=== PATIENT | male | born 1930 | race Hispanic/Latino ===

== ENCOUNTER 2017-08-28 11:52 | Day surgery (SDC) | payer OTHER ==
[2017-08-28] MEDS ORDERED: CYCLOPENTOLATE 1% OPTH 2 ML ONE (12:32)
[2017-08-28] MEDS ORDERED: BUPIVACAINE 0.25% PF 10 ML VIAL ONE (12:33)
[2017-08-28] MEDS ORDERED: PHENYLEPHRINE 10% OPTH 5ML ONE (12:33)
[2017-08-28] MEDS ORDERED: NA CHLORIDE 0.9% 500 ML ONE (12:33)
[2017-08-28] MEDS ORDERED: CYCLOPENTOLATE 1% OPTH 2 ML OPTH ONE ×2 (13:20→13:25)
[2017-08-28] MEDS ORDERED: PHENYLEPHRINE 10% OPTH 5ML OPTH ONE ×2 (13:20→13:25)
[2017-08-28] MEDS ORDERED: NS 0.9% VIAL 10 ML ONE (13:31)
[2017-08-28] MEDS: TETRACAINE HCL 0.5% 2ML OPTH ONE ×2 (13:56→14:07)
[2017-08-28] MEDS: EPINEPHRINE/PF 1 MG/ML AMP ONE ×2 (14:08→14:15)
[2017-08-28] MEDS: DUOVISC 1 KIT OPTH ONE ×2 (14:08→14:15)
[2017-08-28] MEDS: MOXIFLOXACIN HCL 10 DROPS/ML **OR USE OPTH ONE ×2 (14:08→14:15)
[2017-08-28] MEDS: BALANCED SALT IRRIG PLAIN 500 ML BTL IRR ONE ×2 (14:08→14:15)
[2017-08-28] MEDS ORDERED: PROPOFOL 200 MG/20 ML VIAL IV ONE (14:10)
[2017-08-28] MEDS ORDERED: LIDOCAINE 2% MPF 5 ML VIAL ONE (14:10)
--- NOTE | 2017-08-28 14:50 | P.BOP ---
Preoperative diagnosis: Nuclear sclerotic and cortical cataract OS Postoperative diagnosis: Same Primary procedure: Phacoemulsification with IOL OS Estimated blood loss: None Anesthesia: Local (Subtenon's infusion with anesthesia for cataract surgery) Complications: None Implants: ZCB00 +21.0 Transferred to: Other (Day surgery) Condition: Good
--- NOTE | 2017-08-28 23:56 | OP ---
Date of Procedure: 08/28/2017 Surgeon: Nia Gambino MD Anesthesiologist: 1. Sidney Basurto CRNA. 2. Kemal Post M.D. Preoperative Diagnoses: Nuclear sclerotic and cortical cataract, OS (left eye). Operation Performed: Phacoemulsification with intraocular lens implant, OS (left eye). Anesthesia: Per cataract surgery. Complications: None. Description Of Procedure: In day surgery, the patient was prepped with Betadine and draped. A conju nctival incision was made in the inferior nasal quadrant with Ashley scissors. A sub-Tenon block c onsisting of a 1:1 mixture of 2% Xylocaine and 0.25% bupivacaine was placed through the conjunctival incision with a blunt cannula. A Honan balloon was placed over the eye and the patient was transferr ed to the operating room. In the operating room the patient was prepped and draped in the usual sterile fashion for ophthalmic surgery. A lid speculum was placed in the OS. Two paracentesis sites were made superiorly and infer iorly in the limbal cornea. Viscoat was placed in the anterior chamber and a crescent blade was used to make a corneal groove and tunnel, and a keratome was used to enter the anterior chamber. Provisc was placed in the anterior chamber and a 360 degree capsulotomy was performed with a cystitome. The lens was hydrodissected with BSS and rotated freely. The lens was removed with a stop and chop tech nique. A 7.52 phaco CDE was used to remove the lens. Residual cortex was removed with the irrigatio n and aspiration. Provisc was placed in the capsular bag. A ZCB00 +21.0 lens was placed in the caps ular bag without complications. Irrigation and aspiration was used to remove residual viscoelastic. The paracentesis sites were hydrated with BSS. The wound and paracentesis sites were inspected and found to be watertight. Vigamox 0.07 cc was placed intracamerally at the end of the procedure. The eye was irrigated with balanced salt solution. The eye was patched with a soft cotton patch and Chacon metal shield. The patient was returned to day surgery in good condition. Discharge Instructions: Mr. Ornelas is discharged to home in good condition and is to follow up with Dr. Gambino in the morning. GRIFFINL/MODL Voice ID: [id number] Report ID: [id number]
== END 2017-08-28 15:23 | disposition home or self-care (01) ==
LOC: OR 11:52
PROVIDERS: ATTEND Ophthalmology Retina Specialist
PROC: 08RK3JZ Replacement of Left Lens with Synthetic Substitute, Percutaneous Approach (ICD-10-PCS; principal; 2017-08-28 12:55)
DX: H25.12 Age-related nuclear cataract, left eye (principal); H25.012 Cortical age-related cataract, left eye; H43.812 Vitreous degeneration, left eye; H04.123 Dry eye syndrome of bilateral lacrimal glands; E11.9 Type 2 diabetes mellitus without complications; I10 Essential (primary) hypertension; G47.33 Obstructive sleep apnea (adult) (pediatric); M19.90 Unspecified osteoarthritis, unspecified site
CPT/HCPCS: 66984; 82962; J0171

== ENCOUNTER 2018-06-15 16:23 | Emergency (ER) | payer OTHER ==
--- OUTSIDE RECORDS SUMMARY | 2018-06-15 16:25 | XMS REPORT ---
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 Problem Obese E66.9 Active Problem Generalized osteoarthrosis, M15.9 Active involving multiple sites Problem Benign prostate hyperplasia N40.0 Active Problem Unsteady gait R26.81 Active Problem Obstructive sleep apnea G47.33 Active Problem Type 2 diabetes mellitus with other E11.69 Active specified complication Problem GERD (gastroesophageal reflux K21.9 Active disease) Problem Hearing loss H91.90 Active Problem Benign essential HTN I10 Active Problem Colonic polyp K63.5 Active Problem COPD (chronic obstructive pulmonary J44.9 Active disease) Medications No Known Medications Results No Known Results Summary Purpose eClinicalWorks Submission
--- OUTSIDE RECORDS SUMMARY | 2018-06-15 16:25 | XMS REPORT ---
:1930 Author Organization [employer] Care Team Providers Name Role Phone Koehler, Na Provider Role Unavailable Allergies, Adverse Reactions, Alerts Substance Reaction Event Type N.K.D.A. 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 Assessment Obstructive sleep apnea G47.33 Active Assessment Generalized osteoarthrosis, M15.9 Active involving multiple sites Problem Obese E66.9 Active Problem Generalized osteoarthrosis, M15.9 Active involving multiple sites Problem Benign prostate hyperplasia N40.0 Active Problem Unsteady gait R26.81 Active Problem Obstructive sleep apnea G47.33 Active Assessment Essential hypertension I10 Active Assessment Type 2 diabetes mellitus with other E11.69 Active specified complication Assessment 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 Problem Type 2 diabetes mellitus with other E11.69 Active specified complication Problem GERD (gastroesophageal reflux K21.9 Active disease) Assessment Tinea unguium B35.1 Active Problem Hearing loss H91.90 Active Problem Benign essential HTN I10 Active Assessment Unsteady gait R26.81 Active Problem Colonic polyp K63.5 Active Problem COPD (chronic obstructive pulmonary J44.9 Active disease) Medications Medication Code Code Instructions Start End Status Dosage System Date Date Cozaar [facility] 58379934998 50 MG Orally Active 1 tablet Once a day Meclizine HCl ND 71141690722 12.5 MG Orally Active 2 tablets as Once a day needed Metformin HCl [facility] 16289035605 500 MG Active TAKE 1 TABLET BY MOUTH EVERY MORNING Symbicort [facility] 67206468362 160-4.5 MCG/ACT Active 2 puffs Inhalation Twice a day Ventolin HFA [facility] 16903029706 108 (90 Base) Active 2 puffs as MCG/ACT needed Inhalation every 6 hrs Cozaar [facility] 43829367581 50 MG Orally Inactive 1 tablet Once a day Aspirin Adult [facility] 60446514882 81 MG Orally Active 1 tablet Low Dose Once a day Cetirizine [facility] 56075885669 10 MG Orally Active 1 tablet HCl Once a day Cetirizine [facility] 28684663491 10 MG Active TOME ALEX HCl TABLETA POR VIA ORAL [place] [facility] NEEDED FOR ALLERGIES Lyrica ND 22728937057 100 MG Orally October 26, Active 1 capsule two times a day 2017 Zyrtec [facility] 83099406408 10 MG Orally Active 1 tablet Allergy Once a day Ultram [facility] 77068288214 50 MG Orally Active 1 tablet as every 6 hrs needed Losartan [facility] 99452194297 50 MG Active TOME ALEX Potassium TABLETA POR VIA ORAL [place] Losartan [facility] 93207426416 100 MG Orally Active 1 tablet Potassium Once a day Metformin HCl [facility] 75348980941 500 MG Orally Active 1 tablet Twice a day with meals Results No Known Results Summary Purpose eClinicalWorks Submission
--- OUTSIDE RECORDS SUMMARY | 2018-06-15 16:26 | XMS REPORT ---
:1930 Author Organization e[employer]Works Care Team Providers Name Role Phone Koehler, Na Provider Role Unavailable Allergies, Adverse Reactions, Alerts Substance Reaction Event Type N.K.D.A. 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 Assessment COPD (chronic obstructive pulmonary J44.9 Active disease) Assessment Generalized osteoarthrosis, M15.9 Active involving multiple sites Problem Obese E66.9 Active Assessment Screening for cardiovascular Z13.6 Active condition Problem Generalized osteoarthrosis, M15.9 Active involving multiple [...] disease) Problem Hearing loss H91.90 Active Problem Colonic polyp K63.5 Active Medications Medication Code Code Instructions Start End Status Dosage System Date Date Losartan [facility] 49510073910 50 MG Active TOME ALEX Potassium TABLETA POR VIA [place]AL [place] Aspirin Adult [facility] 12814052843 81 MG Orally Active 1 tablet Low Dose Once a day Cetirizine HCl [facility] 26425149026 10 MG Active TOME ALEX TABLETA POR VIA ORAL [place] [facility] NEEDED FOR ALLERGIES Cozaar [facility] 99910215414 50 MG Orally Active 1 tablet Once a day Zyrtec Allergy ND 41767266800 10 MG Orally Active 1 tablet Once a day Ventolin HFA [facility] 63137823873 108 (90 Base) Active 2 puffs as MCG/ACT needed Inhalation every [address] [facility] 08943197828 500 MG Active TAKE 1 TABLET BY MOUTH EVERY MORNING Symbicort ND 11445770343 160-4.5 MCG/ACT Jan 12, Active 2 puffs Inhalation 2018 Twice a day Losartan ND 76068056948 100 MG Orally Active 1 tablet Potassium Once a day Lyrica ND 99687904402 100 MG Orally Active 1 capsule three times a day Metformin HCl [facility] 09864312609 500 MG Orally Active 1 tablet Twice a day with meals Cetirizine HCl [facility] 06228536353 10 MG Orally Active 1 tablet Once a day Meclizine HCl [facility] 54828998649 12.5 MG Orally Active 2 tablets as Once a day needed Ultram [facility] 70495754553 50 MG Orally Active 1 tablet as every 6 hrs needed Flonase ND 62108183607 50 MCG/ACT Jan 17, Active 2 spray in Nasally Once a 2017 each nostril day Results No Known Results Summary Purpose eClinicalWorks Submission
--- OUTSIDE RECORDS SUMMARY | 2018-06-15 16:26 | XMS REPORT ---
:1930 Author Organization eClinicalWorks Care Team Providers Name Role Phone Koehler, Na Provider Role Unavailable Allergies, Adverse Reactions, Alerts Substance Reaction Event Type N.K.D.A. Info Not Available Non Drug Allergy Problems Problem Type Condition Code Onset Dates Condition Status Assessment Unsteady gait R26.81 Active Assessment Dermatitis L30.9 Active Assessment Seasonal allergic rhinitis, J30.2 Active [...] Start End Status Dosage System Date Date Ventolin HFA [facility] 55563585229 108 (90 Base) Active 2 puffs as MCG/ACT needed Inhalation every 6 hrs Lyrica [facility] 06644101703 100 MG Orally Active 1 capsule three times a day Cozaar [facility] 76803755724 50 MG Orally Active 1 tablet Once a day Losartan Potassium [facility] 94589889368 50 MG Active TOME ALEX TABLETA POR VIA ORAL [place] Hydrochlorothiazide [facility] 59775825881 12.5 MG Orally Apr 18, Active 1 tablet Once a day 2018 in the morning Cetirizine HCl [facility] 67438923778 10 MG Active TOME ALEX TABLETA POR VIA ORAL [facility]OS [place] [facility] NEEDED FOR ALLERGIES Cetirizine HCl ND 34802855206 10 MG Orally Apr 18, Active 1 tablet Once a day 2017 Symbicort [facility] 88006172388 160-4.5 Active 2 puffs MCG/ACT Inhalation Twice a day Flonase [facility] 86469198031 50 MCG/ACT Active 2 spray in Nasally Once a each day nostril Metformin HCl [facility] 53613001051 500 MG Active TAKE 1 TABLET BY MOUTH EVERY MORNING Ultram [facility] 55658579634 50 MG Orally Active 1 tablet every 6 hrs as needed Meclizine HCl [facility] 37850438800 12.5 MG Orally Active 2 tablets Once a day as needed Aspirin Adult Low [facility] 48641681263 81 MG Orally Active 1 tablet Dose Once a day Zyrtec Allergy [facility] 98722465309 10 MG Orally Active 1 tablet Once a day Metformin HCl [facility] 43953516160 500 MG Orally Active 1 tablet Twice a day with meals Losartan Potassium [facility] 77099528839 100 MG Orally Active 1 tablet Once a day Cetirizine HCl [facility] 97647102628 10 MG Orally Active 1 tablet Once a day Results No Known Results Summary Purpose eClinicalWorks Submission
[2018-06-15 17:38] LABS: Absolute Lymphocytes (CBC) 0.8 K/uL (0.7-4.9); Absolute Monocytes 0.9 K/uL (0.1-1.3); Absolute Neutrophil 10.7 K/uL (1.8-8.0); Basophils % 0.1 % (0-1.3); Eosinophils % 0.1 % (0-4.4); Hematocrit 39.6 % (39.6-49.0); Lymphocytes % 6.5 % (15.3-44.8); MPV 9.5 fL (7.6-11.3); Monocytes % 7.1 % (3.3-12.3); RBC Red Blood Cell Count 4.18 M/uL (4.33-5.43)
[2018-06-15 17:39] LABS: Protime INR 1.32
--- NOTE | 2018-06-15 17:48 | RAD REPORT ---
EXAM DESCRIPTION: RAD - Chest Single View - 06/15/2018 5:40 pm CLINICAL HISTORY: SWELLING Chest pain. COMPARISON: CHEST PA AND LAT 2 VIEW dated 12/30/2009 FINDINGS: Portable technique limits examination quality. The lungs are underinflated resulting in vascular crowding. The heart is mildly prominent size with a tortuous thoracic aorta. No displaced fractures. IMPRESSION: Underinflated lungs.
[2018-06-15 17:58] LABS: Albumin 2.9 g/dL (3.4-5.0); Bilirubin Direct 3.1 mg/dL (0-0.2); Potassium 3.4 mmol/L (3.5-5.1); Protein, Total 6.9 g/dL (6.4-8.2); Troponin (Emerg Dept Use Only) 0.11 ng/mL (0.0-0.045)
[2018-06-15 18:10] LABS: Blood Morphology Comment NOT SEEN (NOT SEEN); Platelet Estimate ADEQ
[2018-06-15] MEDS ORDERED: ASPIRIN 81 MG CHEWABLE TABLET ONE (18:27)
--- NOTE | 2018-06-15 20:09 | RAD REPORT ---
EXAM DESCRIPTION: US - Abdomen Exam Limited - 06/15/2018 7:51 pm CLINICAL HISTORY: elevated liver enzymes COMPARISON: ABDOMINAL EXAM COMPLETE dated 02/18/2015 FINDINGS: The gallbladder demonstrates several shadowing gallstones. Mild gallbladder wall thickenin g is noted to 7 mm. The common bile duct is mildly prominent measuring 7 mm. The liver demonstrates no findings of intrahepatic biliary dilatation. IMPRESSION: Cholelithiasis with mild gallbladder wall thickening could indicate early cholecystitis. HIDA scan correlation may be of value for further assessment.
[2018-06-15 20:46] LABS: Urine Appearance TURBID; Urine Blood NEGATIVE (NEG); Urine Color ORANGE; Urine Glucose NEGATIVE (NEG); Urine Protein 2+ (NEG); Urine Specific Gravity >=1.030 (1.005-1.030); Urine pH 5.5 (5.0-7.0)
[2018-06-15] MEDS ORDERED: PIPER/TAZO/NS 3.375gm 3.375 GM/100 ML BAG ONE (20:49)
[2018-06-15 20:54] LABS: Urine Bilirubin 3+ (NEG)
[2018-06-15 20:59] LABS: Urine Amorphous Sediment 1+ /HPF (NONE SEEN); Urine Bacteria <20 /HPF (NONE SEEN); Urine Culture Reflex Order REFLEXED; Urine Mucus 2+ /HPF (NONE SEEN); Urine RBC <5 /HPF (NONE SEEN)
--- NOTE | 2018-06-15 21:19 | ER ---
Nurse's Notes [facility] Name: Tam Ornelas Age: 88 yrs Sex: Male : 1930 Arrival Date: 06/15/2018 Time: 16:24 Bed 16 Private MD: Diagnosis: Edema, unspecified;Choledocholithiasis Presentation: 06/15 17:01 Presenting complaint: Child states: Diarrhea x 6 days, temitope lower leg swelling x 2 days, ph pt denies N/V, fever, pain or SOB. Transition of care: patient was not received from another setting of care. Onset of symptoms was June 15, 2018. Risk Assessment: Do you want to hurt yourself or someone else? Patient reports no desire to harm self or others. Initial Sepsis Screen: Does the patient meet any 2 criteria? No. Patient's initial sepsis screen is negative. Does the patient have a suspected source of infection? No. Patient's initial sepsis screen is negative. Care prior to arrival: None. 17:01 Method Of Arrival: Ambulatory ph 17:01 Acuity: DIANE 3 ph Historical: - Allergies: 17:04 No Known Allergies; ph - PMHx: 17:04 Sleep Apnea; Hypertension; Diabetes - NIDDM; Arthritis; ph - Immunization history:: Adult Immunizations unknown. - Social history:: Smoking status: Patient/guardian denies using tobacco. - Ebola Screening: : No symptoms or risks identified at this time. Screenin:10 Abuse screen: Denies threats or abuse. Nutritional screening: No deficits noted. tw2 Tuberculosis screening: No symptoms or risk factors identified. Fall Risk None identified. Assessment: 16:50 General: Appears in no apparent distress. Behavior is calm, cooperative, appropriate tw2 for age. Pain: Denies pain. Neuro: Level of Consciousness is awake, alert, obeys commands, Oriented to person, place, time, situation. Cardiovascular: Heart tones S1 S2 Patient's skin is warm and dry. Respiratory: Airway is patent Respiratory effort is even, unlabored, Respiratory pattern is regular, symmetrical, Breath sounds are clear bilaterally. GI: Abdomen is round non-distended, obese, Bowel sounds present X 4 quads. Reports bloating, diarrhea, since for 6 days now, like 5 or 6 times a day. : No signs and/or symptoms were reported regarding the genitourinary system. EENT: No signs and/or symptoms were reported regarding the EENT system. Derm: No signs and/or symptoms reported regarding the dermatologic system. Musculoskeletal: Range of motion: intact in all extremities. 17:09 Reassessment: provider MAUREEN Silva at bedside at this time. tw2 18:24 Reassessment: Patient appears in no apparent distress at this time. No changes from tw2 previously documented assessment. Patient and/or family updated on plan of care and expected duration. Pain level reassessed. Patient is alert, oriented x 3, equal unlabored respirations, skin warm/dry/pink. 19:05 Reassessment: Patient appears in no apparent distress at this time. Patient and/or jb4 family updated on plan of care and expected duration. Pain level reassessed. Patient is alert, oriented x 3, equal unlabored respirations, skin warm/dry/pink. 19:05 Cardiovascular: Patient's skin is warm and dry. Rhythm is sinus rhythm. jb4 20:00 Reassessment: Patient appears in no apparent distress at this time. Patient and/or jb4 family updated on plan of care and expected duration. Pain level reassessed. Patient is alert, oriented x 3, equal unlabored respirations, skin warm/dry/pink. 21:00 Reassessment: Patient appears in no apparent distress at this time. Patient and/or jb4 family updated on plan of care and expected duration. Pain level reassessed. Patient is alert, oriented x 3, equal unlabored respirations, skin warm/dry/pink. 22:00 Reassessment: Patient appears in no apparent distress at this time. Patient and/or jb4 family updated on plan of care and expected duration. Pain level reassessed. Patient is alert, oriented x 3, equal unlabored respirations, skin warm/dry/pink. 23:16 Reassessment: Patient appears in no apparent distress at this time. Patient and/or aa1 family updated on plan of care and expected duration. Pain level reassessed. Patient is alert, oriented x 3, equal unlabored respirations, skin warm/dry/pink. EMS at the bedside. Vital Signs: 17:03 BP 159 / 57; Pulse 60; Resp 24; Temp 98.4; Pulse Ox 96% on R/A; ph 17:32 BP 158 / 61; Pulse 62; Resp 17; Pulse Ox 97% on R/A; tw2 18:23 BP 130 / 60; Pulse 61; Resp 17; Pulse Ox 97% on R/A; tw2 19:45 BP 157 / 54; Pulse 68; Resp 32; Pulse Ox 96% on R/A; jb4 21:24 BP 138 / 83; Pulse 65; Resp 28; Pulse Ox 98% on R/A; jb4 22:00 BP 141 / 72; Pulse 61; Resp 34; Pulse Ox 97% on R/A; jb4 23:16 BP 131 / 62; Pulse 61; Resp 22; Pulse Ox 98% ; aa1 ED Course: 16:24 Patient arrived in ED. as 16:49 Bed in low position. Call light in reach. Adult w/ patient. Pulse ox on. NIBP on. tw2 16:58 Alissa Jackson RN is Primary Nurse. tw2 16:59 Phill Nieves PA is PHCP. cp 16:59 Manny Amador MD is Attending Physician. cp 17:03 Triage completed. ph 17:04 Arm band placed on Patient placed in an exam room, on a stretcher. ph 17:17 quality assurance monitor body on. tw2 17:30 Inserted saline lock: 20 gauge in left antecubital area, using aseptic technique. Blood tw2 collected. 17:41 XRAY Chest (1 view) In Process Unspecified. EDMS 17:59 EKG done, by hearing aid technician. reviewed by Phill REDDY. sm3 19:04 Report given to EDGARDO Venegas. tw2 19:07 Primary Nurse role handed off by Alissa Jackson RN tw2 19:48 Payam Driscoll, EDGARDO is Primary Nurse. jb4 19:51 US Abdomen Limited: RUQ/epigastric In Process Unspecified. EDMS 23:19 No provider procedures requiring assistance completed. Patient transferred, IV remains aa1 in place. Administered Medications: 18:25 Drug: Aspirin Chewable Tablet 324 mg Route: PO; tw2 18:35 Follow up: Response: No adverse reaction tw2 19:59 CANCELLED (Physician Discretion): Rocephin - (cefTRIAXone) 1 grams IVPB once over 30 cp mins; (mix in 50 mL NS) 20:09 Not Given (Physician Discretion): Rocephin 2 grams IV at calculated rate once; give cp after obtaining urine 21:15 Drug: Zosyn 3.375 grams Route: IVPB; Infused Over: 60 mins; Site: left antecubital; jb4 22:15 Follow up: IV Status: Completed infusion aa1 Outcome: 21:18 ER care complete, transfer ordered by MD. [place]fall 23:19 Transferred to [facility]. aa1 23:19 Condition: stable 23:19 Discharge instructions given to patient, family, Instructed on the need for transfer, Demonstrated understanding of instructions. 23:21 Patient left the ED. aa1 Signatures: Dispatcher [employer] EDMS Kathryn Coy, RN RN aa1 Marivel Thornton Patricia RN RN ph Phill Nieves PA PA Alissa Ruelas RN RN tw2 Payam Driscoll RN RN jb4 Mesha Ortiz 3
--- NOTE | 2018-06-15 21:19 | EDPHYS ---
Physician Documentation [facility] Name: Tam Ornelas Age: 88 yrs Sex: Male : 1930 Arrival Date: 06/15/2018 Time: 16:24 Bed 16 Private MD: ED Physician Manny Amador HPI: 06/15 17:20 This 88 yrs old Male presents to ER via Ambulatory with complaints of Feet cp Swelling, Diarrhea. 17:20 The patient presents to the emergency department with diarrhea, that is continuous. cp Onset: The symptoms/episode began/occurred 6 day(s) ago. Possible causes: unknown. Associated signs and symptoms: Pertinent positives: feet swelling, Pertinent negatives: abdominal pain, constipation, fever, GI bleeding, chest pain. Severity of symptoms: in the emergency department the symptoms are unchanged despite home interventions. Historical: - Allergies: 17:04 No Known Allergies; ph - PMHx: 17:04 Sleep Apnea; Hypertension; Diabetes - NIDDM; Arthritis; ph - Immunization history:: Adult Immunizations unknown. - Social history:: Smoking status: Patient/guardian denies using tobacco. - Ebola Screening: : No symptoms or risks identified at this time. ROS: 17:25 Constitutional: Negative for body aches, chills, fever, poor PO intake. cp 17:25 Eyes: Negative for injury, pain, redness, and discharge. cp 17:25 ENT: Negative for drainage from ear(s), ear pain, sore throat, difficulty swallowing, difficulty handling secretions. 17:25 Cardiovascular: Positive for edema, Negative for chest pain, palpitations. 17:25 Respiratory: Negative for cough, shortness of breath, wheezing. 17:25 Abdomen/GI: Positive for diarrhea, Negative for abdominal pain, nausea and vomiting, constipation, black/tarry stool, rectal bleeding. 17:25 Back: Negative for pain at rest, pain with movement, radiated pain. 17:25 : Negative for urinary symptoms. 17:25 Skin: Negative for cellulitis, rash. 17:25 Neuro: Negative for altered mental status, headache, weakness. 17:25 All other systems are negative. Exam: 17:30 Constitutional: The patient appears in no acute distress, alert, awake, cp non-diaphoretic, non-toxic, well developed, well nourished, obese. 17:30 Head/Face: Normocephalic, atraumatic. Eyes: Pupils equal round and reactive to light, cp extra-ocular motions intact. Lids and lashes normal. Conjunctiva and sclera are non-icteric and not injected. Cornea within normal limits. Periorbital areas with no swelling, redness, or edema. ENT: Nares patent. No nasal discharge, no septal abnormalities noted. Tympanic membranes are normal and external auditory canals are clear. Oropharynx with no redness, swelling, or masses, exudates, or evidence of obstruction, uvula midline. Mucous membranes moist. Neck: Trachea midline, no thyromegaly or masses palpated, and no cervical lymphadenopathy. Supple, full range of motion without nuchal rigidity, or vertebral point tenderness. No Meningismus. Chest/axilla: Normal chest wall appearance and motion. Nontender with no deformity. No lesions are appreciated. 17:30 Cardiovascular: Rate: normal, Rhythm: regular, Pulses: Pulses are 2+ in right radial artery and left radial artery. Heart sounds: murmur, not appreciated, Edema: pedal edema, that is mild, JVD: is not appreciated. 17:30 Respiratory: the patient does not display signs of respiratory distress, Respirations: normal, no use of accessory muscles, no retractions, no splinting, no tachypnea, labored breathing, is not present, Breath sounds: are clear throughout, no decreased breath sounds, no stridor, no wheezing. 17:30 Abdomen/GI: Inspection: obese Bowel sounds: active, all quadrants, Palpation: abdomen is soft and non-tender, in all quadrants, rebound tenderness, is not appreciated, voluntary guarding, is not appreciated, involuntary guarding, is not appreciated. 17:30 Back: pain, is absent, ROM is normal. 17:30 Skin: Appearance: Color: jaundiced, diaphoresis is not appreciated, cellulitis, is not appreciated, no rash present. 17:30 Neuro: Orientation: to person, place \T\ time. Mentation: is normal, Cerebellar function: is grossly normal, Motor: moves all fours, strength is normal, Sensation: is normal. 17:55 ECG was reviewed by the Attending Physician. cp Vital Signs: 17:03 BP 159 / 57; Pulse 60; Resp 24; Temp 98.4; Pulse Ox 96% on R/A; ph 17:32 BP 158 / 61; Pulse 62; Resp 17; Pulse Ox 97% on R/A; tw2 18:23 BP 130 / 60; Pulse 61; Resp 17; Pulse Ox 97% on R/A; tw2 19:45 BP 157 / 54; Pulse 68; Resp 32; Pulse Ox 96% on R/A; jb4 21:24 BP 138 / 83; Pulse 65; Resp 28; Pulse Ox 98% on R/A; jb4 22:00 BP 141 / 72; Pulse 61; Resp 34; Pulse Ox 97% on R/A; jb4 23:16 BP 131 / 62; Pulse 61; Resp 22; Pulse Ox 98% ; aa1 MDM: 17:07 Patient medically screened. cp 20:20 Data reviewed: vital signs, nurses notes, lab test result(s), EKG, radiologic studies, cp ultrasound, I have discussed the patient's presentation/case with the attending Emergency Department Physician; and as a result, I will administer antibiotics Zosyn. 20:20 Test interpretation: by ED physician or midlevel provider: ECG, plain radiologic cp studies. 20:45 Physician consultation: DR Morrison, security manager \\[facility], will consult on patient cp and request transfer to services of hospitalist. 06/15 17:15 Order name: Basic Metabolic Panel; Complete Time: 18:13 cp 06/15 18:19 Interpretation: Normal except: K 3.4; CL 108; GLUC 121; BUN 23; GFR 54. cp 06/15 17:15 Order name: CBC with Diff; Complete Time: 18:13 cp 06/15 18:19 Interpretation: Normal except: WBC 12.4; RBC 4.18; HGB 13.5; WOO% 86.2; LYM% 6.5; NEUT cp A 10.7. 06/15 17:15 Order name: LFT's; Complete Time: 18:13 cp 06/15 19:01 Interpretation: Normal except: AST 520; ALT 489; ALK 269; BILIT 4.0; BILID 3.1; ALB cp 2.9; GLOB 4.0; A/G 0.7. 06/15 17:15 Order name: Magnesium; Complete Time: 18:13 cp 06/15 17:15 Order name: NT PRO-BNP; Complete Time: 18:13 cp 06/15 18:21 Interpretation: Abnormal: NT PRO-BNP 4564. 06/15 17:15 Order name: PT-INR; Complete Time: 18:13 06/15 17:15 Order name: Troponin (emerg Dept Use Only); Complete Time: 18:13 06/15 18:13 Interpretation: Abnormal: TROPED 0.11. 06/15 17:15 Order name: Phosphorus; Complete Time: 18:13 06/15 17:15 Order name: Lipase; Complete Time: 18:13 06/15 18:10 Order name: Manual Differential; Complete Time: 18:13 [facility] 06/15 19:58 Interpretation: Normal except: SEGS 83; BANDS [F] 5; LYM 8. 06/15 20:43 Order name: Urinalysis W/Microscopic; Complete Time: 21:08 [facility] 06/15 21:00 Order name: Urine Culture [facility] 06/15 17:15 Order name: XRAY Chest (1 view); Complete Time: 18:13 06/15 17:15 Order name: EKG; Complete Time: 17:16 06/15 17:15 Order name: Cardiac monitoring; Complete Time: 17:16 06/15 17:15 Order name: EKG - Nurse/Tech; Complete Time: 17:44 06/15 17:15 Order name: IV Saline Lock; Complete Time: 17:30 06/15 17:15 Order name: Labs collected and sent; Complete Time: 17:30 06/15 17:15 Order name: O2 Per Protocol; Complete Time: 17:16 06/15 17:15 Order name: O2 Sat Monitoring; Complete Time: 17:16 06/15 18:14 Order name: US Abdomen Limited: RUQ/epigastric; Complete Time: 20:14 06/15 20:00 Order name: Urine Dipstick-Ancillary (obtain specimen); Complete Time: 20:37 cp EC:55 Rate is 61 beats/min. Rhythm is regular. [place] interval is normal. QRS interval is normal. cp QT interval is normal. Interpreted by me. Reviewed by me. Administered Medications: 18:25 Drug: Aspirin Chewable Tablet 324 mg Route: PO; tw2 18:35 Follow up: Response: No adverse reaction tw2 19:59 CANCELLED (Physician Discretion): Rocephin - (cefTRIAXone) 1 grams IVPB once over 30 cp mins; (mix in 50 mL NS) 20:09 Not Given (Physician Discretion): Rocephin 2 grams IV at calculated rate once; give cp after obtaining urine 21:15 Drug: Zosyn 3.375 grams Route: IVPB; Infused Over: 60 mins; Site: left antecubital; jb4 22:15 Follow up: IV Status: Completed infusion aa1 Disposition: 06/16 09:35 Co-signature as Attending Physician, Manny Amador MD. gs Disposition: 06/15/18 21:18 Transfer ordered to [facility]. Diagnosis are Edema, unspecified, Choledocholithiasis. - Reason for transfer: Higher level of care. - Accepting physician is DR Murcia. - Condition is Stable. - Problem is new. - Symptoms have improved. Signatures: Dispatcher [employer] EDMS Kathryn Coy RN RN aa1 Irina Dalal RN RN Phill Nieves PA PA cp Alissa Jackson RN RN tw2 Payam Driscoll RN RN jb4 Manny Amador MD MD Corrections: (The following items were deleted from the chart) 06/15 18:10 17:49 CBC Smear Scan ordered. EDCT EDMS 19:59 19:59 Rocephin - (cefTRIAXone) 1 grams IVPB once over 30 mins; (mix in 50 mL NS) cp ordered. cp 20:43 20:01 UA MICROSCOPIC+U.LAB.BRZ ordered. EDCT EDMS 21:27 21:18 06/15/2018 21:18 Transfer ordered to [facility]. Diagnosis is cp Edema, unspecified; Choledocholithiasis. Reason for transfer: Higher level of care. Accepting physician is doctor. Condition is Stable. Problem is new. Symptoms have improved. cp 23:21 21:27 06/15/2018 21:18 Transfer ordered to [facility]. Diagnosis is aa1 Edema, unspecified; Choledocholithiasis. Reason for transfer: Higher level of care. Accepting physician is DR Murcia. Condition is Stable. Problem is new. Symptoms have improved. cp
--- NOTE | 2018-06-16 06:38 | EKG ---
Test Date: 2018-06-15 Test Time: 17:48:12 Line Installer: ODALYS MEASUREMENT RESULTS: Intervals: Rate: 61 AK: 128 QRSD: 92 QT: 434 QTc: 436 [place]: P: 70 AK: 128 QRS: 47 T: 48 INTERPRETIVE STATEMENTS: Normal sinus rhythm Low voltage QRS Cannot rule out Anterior infarct, age undetermined Abnormal ECG Compared to ECG 02/28/2018 12:21:39 Low QRS voltage now present Sinus bradycardia no longer present Myocardial infarct finding still present Electronically Signed On 06-16-18 06:37:35 [employer] by Akash Montano
== END 2018-06-15 23:21 | disposition short-term general hospital (02) ==
LOC: ER 16:23
DX: K80.50 Calculus of bile duct without cholangitis or cholecystitis without obstruction (principal); R60.9 Edema, unspecified; E11.9 Type 2 diabetes mellitus without complications; I10 Essential (primary) hypertension; G47.30 Sleep apnea, unspecified; M19.90 Unspecified osteoarthritis, unspecified site
CPT/HCPCS: 36415; 71045; 76705; 80048; 80076; 81001; 83690; 83735; 83880; 84100; 84484; 85025; 85610; 87086; 87088; 93005; 96365; 99285; J2543

== ENCOUNTER 2018-10-05 06:51 | Day surgery (SDC) | payer OTHER ==
--- OUTSIDE RECORDS SUMMARY | 2018-10-05 06:54 | XMS REPORT | Clinical Summary ---
:1930 Author Organization [facility] Address [address] [place] [address] Care Team Providers Name Role Phone Unknownmeds, Provider Primary Care Provider Unavailable Allergies No Known Allergies Medications Medication Sig Dispensed Refills Start Date End Date Status metFORMIN (GLUCOPHAGE) Take 500 mg by 0 Active 500 MG tablet mouth 2 (two) times daily with breakfast and dinner. hydroCHLOROthiazide Take 12.5 mg by 0 Active (HYDRODIURIL) 12.5 MG mouth daily. tablet cyanocobalamin (VITAMIN Take 1,000 mcg 0 Active B-12) 1000 MCG tablet by mouth daily. traMADol (ULTRAM) 50 mg Take 100 mg by 0 Active tablet mouth every 8 (eight) hours as needed for Pain. cetirizine (ZYRTEC) 10 MG Take 10 mg by 0 Active tablet mouth daily. pregabalin (LYRICA) 100 Take 100 mg by 0 Active MG capsule mouth 2 (two) times daily . losartan (COZAAR) 100 MG Take 100 mg by 0 Active tablet mouth daily. Active Problems Problem Noted Date LFT elevation 06/16/2018 Encounters Date Type Specialty Care Team Description 07/20/2018 Anesthesia Event Gastroenterology Dieudonne Lynne MD 07/20/2018 Surgery Gastroenterology Luis Thacker ERCP,STENT REMOVAL Blade 07/20/2018 [facility] Gastroenterology Luis Thacker Encounter Blade 07/18/2018 Hospital Pre-Admission Testing Resource, [facility] Encounter Preadmit Phone 06/19/2018 Surgery Gastroenterology Luis Thacker ERCP Blade 06/19/2018 Anesthesia Event Gastroenterology Yee Land MD 06/16/2018 - [facility] General Internal [facility] [place], LFT elevation (Primary Dx); 06/20/2018 Encounter Medicine Germain-Hans Essential hypertension; MD Evi Type 2 diabetes mellitus with complication, without long-term current use of insulin (HCC); Alex MOHSEN (obstructive sleep apnea); MD Mary Jaundice; Malaika, Cholangitis; MD Bertrand Choledocholithiasis; NAFLD (nonalcoholic fatty liver disease); Class 3 severe obesity due to excess calories without serious comorbidity with body mass index (BMI) of 40.0 to 44.9 in adult (HCC) 06/16/2018 Travel 06/15/2018 Telephone Gastroenterology Darlene Morrison Abnormal Liver MD Wanda Enzymes after 10/04/2017 Social History Tobacco Use Types Packs/Day Years Used Date Never Smoker Smokeless Tobacco: Never Used Alcohol Use Drinks/Week oz/Week Comments No Alcohol Habits Answer Date Recorded How often do you have a drink containing alcohol? Never 07/18/2018 How many drinks containing alcohol do you have on a typical Not asked day when you are drinking? How often do you have six or more drinks on one occasion? Not asked Sex Assigned at Date Recorded Not on file Job Start Date Occupation Industry Not on file Not on file Not on file Travel History Travel Start Travel End No recent travel history available. Last Filed Vital Signs Vital Sign Reading Time Taken Blood Pressure 151/62 07/20/2018 5:15 PM [employer] [employer] Pulse 53 07/20/2018 5:15 PM [employer] Temperature 36.8 C (98.2 F) 07/20/2018 5:15 PM [employer] [facility] Respiratory Rate 17 07/20/2018 5:15 PM [employer] [facility] Oxygen Saturation 97% 07/20/2018 5:15 PM [employer] [facility] Inhaled Oxygen Concentration 21% 06/20/2018 3:15 AM [employer] [facility] Weight 113.4 kg (250 lb 1.6 oz) 07/20/2018 2:23 PM [employer] [facility] Height 170.2 cm (5' 7") 07/20/2018 2:23 PM [employer] Body Mass Index 39.17 07/20/2018 2:23 PM [employer] [facility] Plan of Treatment Not on file Implants Explanted Type 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 Device Shelf Model / Identifier Expiration Date Serial / Lot Stent Panc Advanix [id number] Str 3750 - [id number] Stents-Pe [employer] 04/08/2019 3750 / Implanted: Qty: 1 on 06/19/2018 by Luis Thacker ripheral / Explanted: Qty: 1 on 07/20/2018 by Michael Ordonez MD Stent Bili Rx Walflx 10x40 [id number] - [id number] Stents-Pe [employer] 7089 / Implanted: Qty: 1 on 06/19/2018 by Luis Thacker ripheral / Explanted: Qty: 1 on 07/20/2018 by Michael Ordonez MD Procedures Procedure Name Priority Date/Time Associated Diagnosis Comments RHYTHM STRIP - SCAN 09/06/2018 3:00 PM CDT REPORT OF PROCEDURE 07/20/2018 5:02 - ENDOSCOPY URL PM [employer] FL ERCP Routine 07/20/2018 4:40 Results for this PM [employer] procedure are in the results section. POCT-GLUCOSE METER Routine 07/20/2018 2:46 Results for this PM [employer] procedure are in the results section. ERCP,BALLOON 07/20/2018 2:30 Choledocholithiasis SWEEPING PM [employer] Special Needs (C-ARM) PROCEDURE W/ C-ARM 07/20/2018 2:30 PM [employer] [facility] Choledocholithiasis Special Needs (C-ARM) ERCP,STENT REMOVAL 07/20/2018 2:30 PM [employer] [facility] Choledocholithiasis Special Needs (C-ARM) REPORT OF PROCEDURE - 07/12/2018 8:10 ENDOSCOPY SCAN AM [employer] [facility] RHYTHM STRIP - SCAN 07/12/2018 8:10 AM [employer] REPORT OF PROCEDURE - 07/04/2018 11:44 ENDOSCOPY URL AM [employer] [facility] NM CARDIAC PET Routine 06/20/2018 4:24 Results for this PERFUSION REST AND/OR PM [employer] procedure are in STRESS the results section. TREADMILL Routine 06/20/2018 4:17 Results for this TOLERANCE(NON-NUCLEAR PM [employer] [facility] procedure are in TREADMILL) the results section. POCT-GLUCOSE METER Routine 06/20/2018 12:06 Results for this PM [employer] procedure are in the results section. POCT-GLUCOSE METER Routine 06/20/2018 7:29 Results for this AM [employer] procedure are in the results section. CBC W/PLT COUNT & AUTO Routine 06/20/2018 6:50 Results for this DIFFERENTIAL AM [employer] procedure are in the results section. PHOSPHORUS Routine 06/20/2018 6:50 Results for this AM [employer] procedure are in the results section. MAGNESIUM Routine 06/20/2018 6:50 Results for this AM [employer] procedure are in the results section. CBC W/PLT COUNT & AUTO Routine 06/20/2018 6:50 Results for this DIFFERENTIAL AM [employer] procedure are in the results section. COMPREHENSIVE Routine 06/20/2018 6:50 Results for this METABOLIC PANEL AM [employer] procedure are in the results section. POCT-GLUCOSE METER Routine 06/19/2018 11:07 Results for this PM [employer] procedure are in the results section. POCT-GLUCOSE METER Routine 06/19/2018 6:22 Results for this PM [employer] procedure are in the results section. FL ERCP Routine 06/19/2018 4:42 Results for this PM [employer] procedure are in the results section. ERCP,BALLOON 06/19/2018 4:00 Choledocholithiasis DILATATION PM [employer] Special Needs (ERCP)(REQ 2) ERCP,PANCREATIC STENT 06/19/2018 4:00 PM [employer] [facility] Choledocholithiasis Special Needs (ERCP)(REQ 2) PROCEDURE W/ C-ARM 06/19/2018 4:00 PM [employer] [facility] Choledocholithiasis Special Needs (ERCP)(REQ 2) ERCP 06/19/2018 4:00 PM [employer] Choledocholithiasis Special Needs (ERCP)(REQ 2) POCT-GLUCOSE METER Routine 06/19/2018 12:32 PM [employer] CBC W/PLT COUNT & AUTO Routine 06/19/2018 5:19 AM [employer] [facility] Results for this DIFFERENTIAL procedure are in the results section. HEPATIC FUNCTION PANEL Routine 06/19/2018 5:19 AM [facility] CBC W/PLT COUNT & AUTO Routine 06/19/2018 5:19 AM [employer] [facility] Results for this DIFFERENTIAL procedure are in the results section. BASIC METABOLIC PANEL (7) Routine 06/19/2018 5:19 AM [employer] [facility] POCT-GLUCOSE METER Routine 06/18/2018 10:06 PM [employer] [facility] POCT-GLUCOSE METER Routine 06/18/2018 6:20 PM [employer] POCT-GLUCOSE METER Routine 06/18/2018 9:35 AM [facility] CBC W/PLT COUNT & AUTO Routine 06/18/2018 5:40 AM [employer] [facility] Results for this DIFFERENTIAL procedure are in the results section. HEPATIC FUNCTION PANEL Routine 06/18/2018 5:40 AM [employer] CBC W/PLT COUNT & AUTO Routine 06/18/2018 5:40 AM [employer] Results for this DIFFERENTIAL procedure are in the results section. BASIC METABOLIC PANEL (7) Routine 06/18/2018 5:40 AM [facility] PROTHROMBIN TIME/INR Routine 06/18/2018 5:40 AM [facility] POCT-GLUCOSE METER Routine 06/17/2018 9:58 PM [employer] [facility] POCT-GLUCOSE METER Routine 06/17/2018 6:04 PM [employer] [facility] POCT-GLUCOSE METER Routine 06/17/2018 3:06 PM [employer] [facility] MR ABDOMEN WO CONTRAST MRCP Routine 06/17/2018 2:30 PM [employer] [facility] POCT-GLUCOSE METER Routine 06/17/2018 9:33 AM [facility] CBC W/PLT COUNT & AUTO Routine 06/17/2018 9:13 AM [employer] [facility] Results for this DIFFERENTIAL procedure are in the results section. HEPATIC FUNCTION PANEL Routine 06/17/2018 9:13 AM [facility] CBC W/PLT COUNT & AUTO Routine 06/17/2018 9:13 AM [employer] [facility] Results for this DIFFERENTIAL procedure are in the results section. COMPREHENSIVE METABOLIC Routine 06/17/2018 9:13 AM [employer] [facility] Results for this PANEL procedure are in the results section. POCT-GLUCOSE METER Routine 06/17/2018 7:07 AM [facility] PROTHROMBIN TIME/INR Routine 06/17/2018 6:30 AM [facility] BLOOD GAS, ARTERIAL Routine 06/17/2018 1:09 AM [facility] POCT-GLUCOSE METER Routine 06/16/2018 9:21 PM [employer] [facility] XR CHEST 1 VIEW STAT 06/16/2018 6:45 PM [employer] Results for this PORTABLE/BEDSIDE procedure are in the results section. STOOL PATH CHARGE Routine 06/16/2018 6:08 PM [employer] STOOL CULTURE + SHIGA TOXIN Routine 06/16/2018 6:08 PM [employer] [facility] OVA AND PARASITE EXAMINATION Routine 06/16/2018 6:08 PM [employer] [facility] [facility] C. DIFFICILE GDH TOXIN Routine 06/16/2018 6:08 PM [employer] [facility] POCT-GLUCOSE METER Routine 06/16/2018 2:56 PM [employer] BLOOD CULTURE Routine 06/16/2018 2:53 PM [employer] BLOOD CULTURE Routine 06/16/2018 2:39 PM [employer] [facility] 2D ECHO W/ DOPPLER Routine 06/16/2018 11:33 AM [facility] [facility] Results for this (CW/PW/COLOR) procedure are in the results section. B-TYPE NATRIURETIC FACTOR Routine 06/16/2018 11:00 AM [facility] Results for this (BNP) procedure are in the results section. TROPONIN I Routine 06/16/2018 11:00 AM [employer] [facility] HEPATITIS PANEL, ACUTE Routine 06/16/2018 11:[address] [address] ABDOMEN/PELVIS WITH IV Routine 06/16/2018 8:59 AM [employer] [facility] Results for this CONTRAST procedure are in the results section. POCT-GLUCOSE METER Routine 06/16/2018 5:31 AM [facility] [facility] TROPONIN I Routine 06/16/2018 4:57 AM [employer] [facility] PROTHROMBIN TIME/INR Routine 06/16/2018 4:57 AM [employer] [facility] COMPREHENSIVE METABOLIC Routine 06/16/2018 4:57 AM [employer] [facility] Results for this PANEL procedure are in the results section. CBC (HEMOGRAM ONLY) Routine 06/16/2018 4:57 AM [employer] [facility] [facility] after 10/04/2017 Results RHYTHM STRIP - SCAN (09/06/2018 3:00 PM CDT)Only the most recent of2 resultswithin the time period is included. Narrative Performed At REPORT OF PROCEDURE - ENDOSCOPY URL (07/20/2018 5:02 PM [employer]) Narrative Performed At [place] Endoscopic Retrograde Cholangiopancreatography (07/20/2018 4:40 PM [employer])Only the most recent of2 resultswithin the time period is included. Specimen Narrative Performed At FINAL REPORT [facility] TECHNIQUE: Fluoroscopic images from endoscopic retrograde cholangiopancreatography were submitted for interpretation. INDICATION: choledocholithiasis. COMPARISON: None. FINDINGS: The bulb filler film shows metallic common bile duct and plastic pancreatic ductal stents. Subsequent images show interrogation of the biliary system. Fluoroscopy time: 2.5 minutes Images: 10 IMPRESSION: Fluoroscopic images from an endoscopic retrograde cholangiopancreatography not obtained by the undersigned. Please refer to the endoscopy note for details of the procedure and findings. Signed: Danny Fontaine MD Report Verified Date/Time:07/20/2018 17:13:19 Reading Location: [address] Radiology Reading Room Procedure Note Interface, External Ris In - 07/20/2018 5:15 PM [employer] FINAL REPORT TECHNIQUE: Fluoroscopic images from endoscopic retrograde cholangiopancreatography were submitted for interpretation. INDICATION: choledocholithiasis. COMPARISON: None. FINDINGS: The bulb filler film shows metallic common bile duct and plastic pancreatic ductal stents. Subsequent images show interrogation of the biliary system. Fluoroscopy time: 2.5 minutes Images: 10 IMPRESSION: Fluoroscopic images from an endoscopic retrograde cholangiopancreatography not obtained by the undersigned. Please refer to the endoscopy note for details of the procedure and findings. Signed: Danny Fontaine MD Report Verified Date/Time: 07/20/2018 17:13:19 Reading Location: [address] Radiology Reading Room Performing Organization Address City/State/Zipcode Phone Number [facility] POC-Glucose meter (07/20/2018 2:46 PM [employer] [facility])Only the most recent of17 resultswithin the time period is included. POC-Glucose Meter 106Comment: TESTED AT 70 - 110 mg/dL [facility] [address] [facility] [id number] Specimen Blood Performing Organization Address City/State/Zipcode Phone Number [facility] [address] [place] [address] CENTER EKG-SCANNED (07/12/2018 8:10 AM [employer] [facility]) Narrative Performed At REPORT OF PROCEDURE - ENDOSCOPY URL (07/04/2018 11:44 AM [employer] [facility]) Narrative Performed At NM myocardial perfusion PET (rest and stress) (06/20/2018 4:24 PM [employer]) Specimen Narrative Performed At FINAL REPORT [facility] PROCEDURE: Rest/Stress MYOCARDIAL PERFUSION PET with regadenoson\\XA9\\ CPT CODE: [id number] INDICATION: Preoperative stratification cholecystectomy HISTORY: Cardiac risk factors: BMI 41.2, diabetes mellitus, hypertension, obesity. Other cardiovascular history: No reported CAD.. Recent cardiac symptoms: Dyspnea. Current cardiovascular-related medications: Losartan. PROTOCOL: Limited low-dose CT imaging was performed for attenuation correction. 40.1 mCi of Rb-82 chloride was injected iv at rest, and gated PET (positron emission tomography) images were obtained. Subsequently, 40.1 mCi of Rb-82 chloride was injected iv at expected peak pharmacologic effect, and gated PET images were obtained. PRELIMINARY STRESS TEST DATA FROM NONINVASIVE CARDIOLOGY: Pharmacologic stress was by 10-second iv infusion of 0.4 mg of regadenoson. Radiotracer was injected 30 seconds after start of stress. Heart rate was 60 beats/min at rest and 71 beats/min (53% of MPHR) at tracer injection. BP was 191/71 mmHg at rest and 176/52 mmHg at tracer injection. Stress was stopped for predetermined endpoint. The patient experienced dyspnea; treatment was not required. Preliminary ECG evaluation revealed sinus rhythm at rest and no ischemic changes with stress. (Final ECG interpretation and other stress and monitoring data are reported separately by Cardiology.) IMAGING FINDINGS: Study quality is good. Images obtained after rest and stress injections show normal LV activity.LV and RV volumes appear normal. Gated images obtained at rest and with stress show normal LV wall motion and thickening.LVEF at rest is 65%. LVEF at stress is 73%. IMPRESSION: 1. Normal study.2. Appropriate pharmacologic stress.3. Normal myocardial perfusion.4. Normal resting LV function. Normal stress function.5. Normal extracardiac tracer distribution.6.. NONINVASIVE RISK STRATIFICATION: The above findings are considered low risk (<1% annual mortality rate) based on the following criterion: - Normal or small myocardial perfusion defect at rest or with stress [facility] 2012;59(9):575-18.) Signed: Julio Cesar Dangelo MD Report Verified Date/Time:06/20/2018 17:03:56 Reading Location: [address] Reading Room Procedure Note Interface, External Ris In - 06/20/2018 5:06 PM [employer] FINAL REPORT PROCEDURE: Rest/Stress MYOCARDIAL PERFUSION PET with regadenoson\\XA9\\ CPT CODE: [id number] INDICATION: Preoperative stratification cholecystectomy HISTORY: Cardiac risk factors: BMI 41.2, diabetes mellitus, hypertension, obesity. Other cardiovascular history: No reported CAD.. Recent cardiac symptoms: Dyspnea. Current cardiovascular-related medications: Losartan. PROTOCOL: Limited low-dose CT imaging was performed for attenuation correction. 40.1 mCi of Rb-82 chloride was injected iv at rest, and gated PET (positron emission tomography) images were obtained. Subsequently, 40.1 mCi of Rb-82 chloride was injected iv at expected peak pharmacologic effect, and gated PET images were obtained. PRELIMINARY STRESS TEST DATA FROM NONINVASIVE CARDIOLOGY: Pharmacologic stress was by 10-second iv infusion of 0.4 mg of regadenoson. Radiotracer was injected 30 seconds after start of stress. Heart rate was 60 beats/min at rest and 71 beats/min (53% of MPHR) at tracer injection. BP was 191/71 mmHg at rest and 176/52 mmHg at tracer injection. Stress was stopped for predetermined endpoint. The patient experienced dyspnea; treatment was not required. Preliminary ECG evaluation revealed sinus rhythm at rest and no ischemic changes with stress. (Final ECG interpretation and other stress and monitoring data are reported separately by Cardiology.) IMAGING FINDINGS: Study quality is good. Images obtained after rest and stress injections show normal LV activity. LV and RV volumes appear normal. Gated images obtained at rest and with stress show normal LV wall motion and thickening. LVEF at rest is 65%. LVEF at stress is 73%. IMPRESSION: 1. Normal study. 2. Appropriate pharmacologic stress. 3. Normal myocardial perfusion. 4. Normal resting LV function. Normal stress function. 5. Normal extracardiac tracer distribution. 6. . NONINVASIVE RISK STRATIFICATION: The above findings are considered low risk (<1% annual mortality rate) based on the following criterion: - Normal or small myocardial perfusion defect at rest or with stress J[facility]. 2012;59(9):729-81.) Signed: Julio Cesar Dangelo MD Report Verified Date/Time: 06/20/2018 17:03:56 Reading Location: [address] Reading Room Performing Organization Address [facility] Phone Number GE RIS Treadmill tolerance(Non-Nuclear Treadmill) (06/20/2018 4:17 PM [employer]) Specimen Narrative Performed At Protocol Name Regadenoson GE MUSE Time In Exercise Phase 00:01:00 Max. Systolic BP 176 mmHg Max Diastolic BP 52 mmHg Max Heart Rate 71 BPM Max Predicted Heart Rate 132 BPM Reason For Termination Predetermined end point Reason for Test Pre Op Cardiac Clearance Target HR Formula (220 - Age)*100% Arrhythmias none Resting ECG Normal sinus rhythm Incomplete Right bundle branch block ST Changes No Significant Changes Overall Impression Indeterminate due to pharmacological stress Chest Pain CHEST PAIN 6/10 HR Response To Exercise BP Response To Exercise LOSARTAN Confirmed by fellow Christos Beckett ([id number]) on 06/21/2018 8:55:26 AM Confirmed by Sary VICENTE MICHAEL ([id number]) on 06/26/2018 7:38:57 AM Procedure Note Interface, External Ris In - 06/26/2018 7:39 AM [employer] [facility] [facility] Protocol Name Regadenoson Time In Exercise Phase 00:01:00 Max. Systolic BP 176 mmHg Max Diastolic BP 52 mmHg Max Heart Rate 71 BPM Max Predicted Heart Rate 132 BPM Reason For Termination Predetermined end point Reason for Test Pre Op Cardiac Clearance Target HR Formula (220 - Age)*100% Arrhythmias none Resting ECG Normal sinus rhythm Incomplete Right bundle branch block ST Changes No Significant Changes Overall Impression Indeterminate due to pharmacological stress Chest Pain CHEST PAIN 6/10 HR Response To Exercise BP Response To Exercise LOSARTAN Confirmed by fellow Christos Beckett ([id number]) on 06/21/2018 8:55:26 AM Confirmed by Sary VICENTE MICHAEL ([id number]) on 06/26/2018 7:38:57 AM Performing Organization Address City/State/Zipcode Phone Number GE MUSE CBC with platelet count + automated diff (06/20/2018 6:50 AM [employer] [facility] [facility])Only the most recent of4 resultswithin the time period is included. WBC 8.0 3.5 - 10.5 K/L [facility] RBC 3.89 (L) 4.63 - 6.08 M/L [facility] Hemoglobin 12.5 (L) 13.7 - 17.5 GM/DL [facility] Hematocrit 37.3 (L) 40.1 - 51.0 % [facility] MCV 95.9 (H) 79.0 - 92.2 fL [facility] MCH 32.1 25.7 - 32.2 pg [facility] MCHC 33.5 32.3 - 36.5 GM/DL [facility] RDW 14.8 (H) 11.6 - 14.4 % [facility] Platelets 210 150 - 450 K/CU MM [facility] MPV 11.6 9.4 - 12.4 fL [facility] nRBC 0 0 - 0 /100 WBC [facility] % Neutros 62 % [facility] % Lymphs 23 % [facility] % Monos 11 % [facility] % Eos 3 % [facility] % Baso 0 % [facility] # Neutros 4.95 1.78 - 5.38 K/L [facility] # Lymphs 1.82 1.32 - 3.57 K/L [facility] # Monos 0.88 (H) 0.30 - 0.82 K/L [facility] # Eos 0.24 0.04 - 0.54 K/L [facility] # Baso 0.02 0.01 - 0.08 K/L [facility] Immature Granulocytes-Relative 1 0 - 1 % [facility] Specimen Blood Performing Organization Address City/State/Zipcode Phone Number [address] [address] [phone] [place] Phosphorus (06/20/2018 6:50 AM [employer] [facility]) Phosphorus 3.4 2.3 - 4.7 mg/dL [facility] Specimen Blood Performing Organization Address City/State/Zipcode Phone Number [address] [address] CENTER Magnesium (06/20/2018 6:50 AM [employer]SP[employer] [facility]) Magnesium 1.8 1.6 - 2.6 mg/dL [facility] Specimen Blood Performing Organization Address City/[facility]/Zipcode Phone Number [address] [address] [place] Comprehensive metabolic panel (06/20/2018 6:50 AM [employer])Only the most recent of3 resultswithin the time period is included. Protein, Total 6.2 6.0 - 8.3 gm/dL [facility] Albumin 3.1 (L) 3.5 - 5.0 g/dL [facility] Alkaline Phosphatase 160 (H) 40 - 150 U/L [facility] Total Bilirubin 1.0 0.2 - 1.2 mg/dL [facility] Sodium 147 (H) 136 - 145 meq/L [facility] Potassium 3.5 3.5 - 5.1 meq/L [facility] Chloride 111 (H) 98 - 107 meq/L [facility] CO2 25 22 - 29 meq/L [facility] BUN 25 (H) 7 - 21 mg/dL [facility] Creatinine 1.19 0.57 - 1.25 mg/dL [facility] Glucose 93 70 - 105 mg/dL [facility] Calcium 8.7 8.4 - 10.2 mg/dL [facility] AST 39 (H) 5 - 34 U/L [facility] ALT 99 (H) 6 - 55 U/L [facility] EGFR 58Comment: ESTIMATED GFR mL/min/1.73 sq m [facility] IS NOT ACCURATE [facility] CREATININE CLEARANCE IN PREDICTING GLOMERULAR FILTRATION RATE. ESTIMATED GFR IS NOT APPLICABLE FOR DIALYSIS PATIENTS. Specimen Blood Performing Organization Address City/[facility] [facility] Phone Number [address] [address] CENTER Hepatic function panel (06/19/2018 5:19 AM TRANSPORTATION JOB TITLES)Only the most recent of3 resultswithin the time period is included. Protein, Total 6.2Comment: Specimen 6.0 - 8.3 gm/dL [facility] hemolyzed [facility] Albumin 3.0 (L)Comment: Specimen 3.5 - 5.0 g/dL [facility] Total Bilirubin 0.8Comment: Specimen 0.2 - 1.2 mg/dL [facility] Bil[facility], Direct 0.4Comment: Specimen 0.1 - 0.5 mg/dL [facility] hemolyzed [facility] Alkaline Phosphatase 175 (H) 40 - 150 U/L [facility] AST 37 (H)Comment: Specimen 5 - 34 U/L [facility] slightly hemolyzed [facility] ALT 119 (H)Comment: Specimen 6 - 55 U/L [facility] slightly hemolyzed [facility] [place] Specimen Blood Performing Organization Address City/[facility] Phone Number [address] [place] [address] CENTER Basic Metabolic Panel (06/19/2018 5:19 AM TRANSPORTATION JOB TITLES)Only the most recent of2 resultswithin the time period is included. Sodium 144 136 - 145 meq/L [facility] Potassium 3.7Comment: Specimen slightly 3.5 - 5.1 meq/L [facility] Chloride 112 (H) 98 - 107 meq/L [facility] CO2 24 22 - 29 meq/L [facility] BUN 18 7 - 21 mg/dL [facility] Creatinine 1.14Comment: Specimen 0.57 - 1.25 mg/dL [facility] slightly hemolyzed [facility] Glucose 112 (H) 70 - 105 mg/dL [facility] Calcium 8.9 8.4 - 10.2 mg/dL [facility] EGFR 61Comment: ESTIMATED GFR IS mL/min/1.73 sq m [facility] NOT ACCURATE [facility] CLEARANCE IN PREDICTING GLOMERULAR FILTRATION RATE. ESTIMATED GFR IS NOT APPLICABLE FOR DIALYSIS PATIENTS. Specimen Blood Performing Organization Address City/[facility] Phone Number [address] [address] [phone] CENTER Prothrombin time/INR (06/18/2018 5:40 AM TRANSPORTATION JOB TITLES)Only the most recent of3 resultswithin the time period is included. Protime 14.0 11.7 - 14.7 seconds [facility] INR 1.1 <=5.9 [facility] Specimen Blood Narrative Performed At RECOMMENDED COUMADIN/WARFARIN INR THERAPY [facility] RANGES STANDARD DOSE: 2.0 - 3.0 Includes: PROPHYLAXIS for venous thrombosis, systemic embolization; TREATMENT for venous thrombosis and/or pulmonary embolus. HIGH RISK: Target INR is 2.5-3.5 for patients with mechanical heart valves. Performing Organization Address City/[facility] Phone Number [facility] MEDICAL [address] [place] [address] CENTER MR abdomen without IV contrast MRCP (06/17/2018 2:30 PM TRANSPORTATION JOB TITLES) Specimen Narrative Performed At FINAL REPORT [facility] MRI of the abdomen, MRCP. MEDICAL HISTORY: Loss of consciousness. COMPARISON STUDY: CT scan dated June 16, 2018. TECHNIQUE: Multiplanar, multisequence images of the abdomen were acquired without the administration of intravenous gadolinium as per the MRCP protocol. Three-dimensional reconstructions were acquired and utilized by the dictating radiologist at the time of interpretation. FINDINGS: No pleural effusion is seen. The liver demonstrates a noncirrhotic morphology. No masses are seen on this noncontrast study. The spleen is unremarkable. Atrophic changes are seen in both kidneys. No adrenal abnormalities identified. There is a 2.4 cm increased T2 and decreased T1 weighted left renal lesion as well as other lesions in the kidneys, statistically most likely cysts. Within the inter to upper polar portion of the right kidney is a 1.6 cm increased T1, decreased T2-weighted lesion which is incompletely characterized on this noncontrast study. A hemorrhagic or proteinaceous cyst would be possible but this cannot be said with certainty. A large duodenal diverticulum is seen extending into the pancreatic head region. Lack of contrast limits assessment but no definite enhancing masses are identified. There are no dilated loops of bowel seen to suggest obstruction. No ascites is seen. There is no suspicious adenopathy. The aorta is normal in caliber. MRCP demonstrates cholelithiasis. Some gallbladder wall thickening is noted. The CBD is dilated measuring up to 1.3 cm and there are multiple stones in the mid duct measuring up to 1.0 cm in size. Two calculi are also seen in the common hepatic duct. The pancreatic duct is dilated measuring up to 5 mm. The visualized osseous structures demonstrate degenerative changes. IMPRESSION: 1. Cholelithiasis with gallbladder wall thickening and significant choledocholithiasis with dilatation of the CBD. 2. Large duodenal diverticulum. 3. Dilatation of the pancreatic duct. Lack of contrast limits assessment for masses. 4. Renal cysts as well as indeterminate right renal lesion which would be better assessed with a renal protocol CT scan or MRI. Signed: Martínez Riley MD Report Verified Date/Time:06/18/2018 08:31:40 Reading Location: [facility] Diagnostic Imaging Reading Room - [place] [address] Procedure Note Interface, External Ris In - 06/18/2018 8:33 AM TRANSPORTATION JOB TITLES FINAL REPORT MRI of the abdomen, MRCP. MEDICAL HISTORY: Loss of consciousness. COMPARISON STUDY: CT scan dated June 16, 2018. TECHNIQUE: Multiplanar, multisequence images of the abdomen were acquired without the administration of intravenous gadolinium as per the MRCP protocol. Three-dimensional reconstructions were acquired and utilized by the dictating radiologist at the time of interpretation. FINDINGS: No pleural effusion is seen. The liver demonstrates a noncirrhotic morphology. No masses are seen on this noncontrast study. The spleen is unremarkable. Atrophic changes are seen in both kidneys. No adrenal abnormalities identified. There is a 2.4 cm increased T2 and decreased T1 weighted left renal lesion as well as other lesions in the kidneys, statistically most likely cysts. Within the inter to upper polar portion of the right kidney is a 1.6 cm increased T1, decreased T2-weighted lesion which is incompletely characterized on this noncontrast study. A hemorrhagic or proteinaceous cyst would be possible but this cannot be said with certainty. A large duodenal diverticulum is seen extending into the pancreatic head region. Lack of contrast limits assessment but no definite enhancing masses are identified. There are no dilated loops of bowel seen to suggest obstruction. No ascites is seen. There is no suspicious adenopathy. The aorta is normal in caliber. MRCP demonstrates cholelithiasis. Some gallbladder wall thickening is noted. The CBD is dilated measuring up to 1.3 cm and there are multiple stones in the mid duct measuring up to 1.0 cm in size. Two calculi are also seen in the common hepatic duct. The pancreatic duct is dilated measuring up to 5 mm. The visualized osseous structures demonstrate degenerative changes. IMPRESSION: 1. Cholelithiasis with gallbladder wall thickening and significant choledocholithiasis with dilatation of the CBD. 2. Large duodenal diverticulum. 3. Dilatation of the pancreatic duct. Lack of contrast limits assessment for masses. 4. Renal cysts as well as indeterminate right renal lesion which would be better assessed with a renal protocol CT scan or MRI. Signed: Martínez Riley MD Report Verified Date/Time: 06/18/2018 08:31:40 Reading Location: [facility] Diagnostic Imaging Reading Room - [facility] F1 1120 Performing Organization Address City/State/Zipcode Phone Number [facility] [place] Blood gas, arterial (06/17/2018 1:09 AM TRANSPORTATION JOB TITLES) pH, Arterial 7.43 7.35 - 7.45 [facility] pCO2, Arterial 37 35 - 45 mmHg [facility] pO2, Arterial 74 (L) 80 - 90 mmHg [facility] O2 Sat, Arterial 95.4 (L) 96.0 - 97.0 % [facility] HCO3, Arterial 24 21 - 29 mmol/L [facility] Base Excess, Arterial 0.4 -2.0 - 3.0 mmol/L [facility] Patient Temperature 37.0 C [facility] FIO2 21.0 % [facility] Specimen Blood, Arterial Performing Organization Address City/State/Zipcode Phone Number [place] [phone] [place] [address] [phone] CENTER XR chest 1 view portable / bedside (06/16/2018 6:45 PM TRANSPORTATION JOB TITLES) Specimen Narrative Performed At FINAL REPORT [facility] INDICATION: tachypnic COMPARISON: None TECHNIQUE: Single frontal view of the chest. FINDINGS: Spurious elevation of the right hemidiaphragm and basilar subsegmental atelectasis. Superimposed infection within the left lower lobe may be excluded clinically. Although there is no dean airspace consolidation, reticular opacities are noted within the lateral left lung. IMPRESSION: Spurious elevation of the right hemidiaphragm and basilar subsegmental atelectasis. Superimposed infection within the left lower lobe may be excluded clinically. Although there is no dean airspace consolidation, reticular opacities are noted within the lateral left lung. Signed: Golden Rosenthal MD Report Verified Date/Time:06/16/2018 19:27:33 Reading Location: [facility] C013 Neuro Reading Room Procedure Note Interface, External Ris In - 06/16/2018 7:29 PM TRANSPORTATION JOB TITLES FINAL REPORT INDICATION: tachypnic COMPARISON: None TECHNIQUE: Single frontal view of the chest. FINDINGS: Spurious elevation of the right hemidiaphragm and basilar subsegmental atelectasis. Superimposed infection within the left lower lobe may be excluded clinically. Although there is no dean airspace consolidation, reticular opacities are noted within the lateral left lung. IMPRESSION: Spurious elevation of the right hemidiaphragm and basilar subsegmental atelectasis. Superimposed infection within the left lower lobe may be excluded clinically. Although there is no edan airspace consolidation, reticular opacities are noted within the lateral left lung. Signed: Golden Rosenthal MD Report Verified Date/Time: 06/16/2018 19:27:33 Reading Location: [facility] C013V Neuro Reading Room Performing Organization Address City/[facility] Phone Number RIS Clostridium difficile [facility] Toxin (06/16/2018 6:08 PM TRANSPORTATION JOB TITLES) C. Difficle Toxin Negative Negative [facility] C. Difficile [facility] Antigen NegativeComment: No Negative [facility] indication of Clostridium [facility]ICAL CENTER difficile infection and no colonization. Discontinue enteric isolation and therapy. Specimen Stool Narrative Performed At Testing performed by [employer] [facility] Assay.For GDH, published sensitivity of the assay is 98.7% compared to cytotoxicity testing.For Toxin AB, published sensitivity is 87.8% and specificity 99.4% compared to cytotoxicity testing. Verification of kit performance was done by the [facility] Microbiology Lab prior to clinical use. Performing Organization Address City/State/Zipcode Phone Number [address] [address] CENTER STOOL PATH CHARGE (06/16/2018 6:08 PM TRANSPORTATION JOB TITLES) Pathogen exam charged Done [facility] Specimen Stool Performing Organization Address City/[facility] Phone Number [address] [address] [phone] [place] Ova and Parasite Examination (06/16/2018 6:08 PM TRANSPORTATION JOB TITLES) O&P Direct Smear No ova or parasites No ova or parasites [facility] seen seen [facility] Specimen Stool Narrative Performed At Performing Organization Address City/State/Zipcode Phone Number [address] [address] [place] Stool culture + Shiga toxin (06/16/2018 6:08 PM TRANSPORTATION JOB TITLES) Result No Salmonella, Shigella or [facility] Campylobacter isolated [facility] Specimen Stool Performing Organization Address [facility]/Zipcode Phone Number [address] [address] [place] Blood culture (06/16/2018 2:53 PM TRANSPORTATION JOB TITLES)Only the most recent of2 resultswithin the time period is included. Result No growth in 5 days [facility] Specimen Blood Performing Organization Address [facility]/Zipcode Phone Number [address] [address] [phone] [place] 2D Echo W/Doppler(CW/PW/Color) (06/16/2018 11:33 AM TRANSPORTATION JOB TITLES) Ejection Fraction [facility] Specimen Narrative Performed At Transthoracic Echocardiography Report (TTE) [facility] Demographics Patient NameSTEPH HENSON Date of Study06/16/2018 MARIANN Male Visit [id number] Unknown Room [id number] Number Date of 1930Referring LYN PurcellHAMSEE Age 88 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 Clinical History HGB 12.1 HCT 37.1 % DM, HTN Contrast Medium: Definity. Amount - 2 ml Height: 67 inches Weight: 119.29 kg (263 lbs) BSA: 2.27 m^2 BMI: 41.19 kg/m^2 HR: 53 bpm BP: 149/67 mmHg Summary The left ventricle is chamber size (by PSLAX dimension) is mildly enlarged (male - LVIDd 5.9-6.3cm) . Mild septal hypertrophy is present. All of the LV segments contract normally . Global LV systolic function normal . Estimated LVEF by qualitative assessment is normal (>60%) . LV endocardium is adequately visualized with IV ultrasound enhancing agent. Normal (cardiac index 2-3 L/min/m2) cardiac output state at rest is noted. Mild tricuspid regurgitation. Estimated peak systolic PA pressure is 50-55 mmHg . The estimated RA pressure by IVC dynamics 5-10mmHg . No significant pericardial effusion is visualized. Previous Study No prior exam available for comparison. Signature Findings Left Ventricle The left ventricle is chamber size (by PSLAX di mension) is mildly enlarged (male - LVIDd 5. 9-6.3cm) . Mild septal hypertrophy is present. Al l of the LV segments contract normally . Global LV systolic function normal . Estimated LVEF by qu alitative assessment is normal (>60%) . LV en docardium is adequately visualized with IV ul trasound enhancing agent. Normal (cardiac index 2- 3 L/min/m2) cardiac output state at rest is no marianne. Left AtriumLA size is mildly enlarged (35-41 ml/m2) . Right VentricleRV chamber size is mildly enlarged . Gl obal RV systolic function is normal . Right Atrium RA cavity size appears normal . Th e RA is partially visualized. Aortic Valve Mild AoV cusp calcification. Mitral Valve Mild MV leaflet thickening. Mi ld mitral annular calcification. Mi ld mitral regurgitation. Tricuspid ValveMild tricuspid regurgitation. Es timated peak systolic PA pressure is 50-55 mmHg . Pulmonic Valve Normal PV structure and function by limited views an d Doppler. AortaAortic root size (SInus of Valsalva diameter) is no rmal . PericardiumNo significant pericardial effusion is visualized. IVC/SVC/PA/PV/PleuralThe right upper pulmonary vein (RUPV) is normal . Th e estimated RA pressure by IVC dynamics 5-10mmHg . Chambers/Structures Left Atrium LA Volume: 83.2 mlLA Area: 26.19 cm^2 LA Vol. Index: 37 ml/m^2 Left Ventricle LVIDd: 5.98 cm LV Septum Diastolic: 1.22 cm LV PW Diastolic: 0.95 cm LVEDV Talley's:140.46 ml LVESV Talley's:38.26 ml LVEF Talley's: 72.8 %LVEDV I: 62 ml/m^2 LVESVI: 17 ml/m^2 LVOT Diameter: 2.27 cm Right Ventricle TAPSE: 2.06 cm Aorta Ao Root S of [place].: 3.53 cm Doppler/Quantitative Measurements Mitral Valve MV Peak E-Wave: 0.92 m/sMV Peak A-Wave: 1.49 m/s E/A Ratio: 0.62 Peak Gradient: 3.42 mmHg Deceleration Time: 275.1 msec MV Wai. Peak: Tissue Doppler E' Lateral Velocity: 0.08 m/s E/E': 12.01 Aortic Valve Peak Velocity: 1.83 m/sMean Velocity: 1.37 m/s Peak Gradient: 13.39 mmHgMean Gradient: 8.23 mmHg AV Area (continuity): 2.89 cm^2 AV VTI: 42.09 cm AV DVI: 0.71 LVOT Peak Velocity: 1.18 m/s Peak Gradient: 5.61 mmHg Mean Velocity: 0.86 m/s Mean Gradient: 3.3 mmHg LVOT Diameter: 2.27 cmLVOT VTI: 30.06 cm LVOT Area: 4.05 cm^2LVOT SV:121.59 ml LVOT CO: 6.44 l/min LVOT CI: 2.84 l/min/m^2 Tricuspid Valve TR Velocity: 3.43 m/s TR Gradient: 46.92 mmHg Procedure Note Interface, External Ris In - 06/16/2018 2:19 PM TRANSPORTATION JOB TITLES Transthoracic Echocardiography Report (TTE) Demographics Patient Name STEPH HENSON Date of Study 06/16/2018 MARIANN Gender Male Visit Number [id number] Race Unknown Room Number [id number] Number Date of 1930 Referring LYN ARROYO Physician LEO Age 88 year(s) 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 Clinical History HGB 12.1 HCT 37.1 % DM, HTN Contrast Medium: Definity. Amount - 2 ml Height: 67 inches Weight: 119.29 kg (263 lbs) BSA: 2.27 m^2 BMI: 41.19 kg/m^2 HR: 53 bpm BP: 149/67 mmHg Summary The left ventricle is chamber size (by PSLAX dimension) is mildly enlarged (male - LVIDd 5.9-6.3cm) . Mild septal hypertrophy is present. All of the LV segments contract normally . Global LV systolic function normal . Estimated LVEF by qualitative assessment is normal (>60%) . LV endocardium is adequately visualized with IV ultrasound enhancing agent. Normal (cardiac index 2-3 L/min/m2) cardiac output state at rest is noted. Mild tricuspid regurgitation. Estimated peak systolic PA pressure is 50-55 mmHg . The estimated RA pressure by IVC dynamics 5-10mmHg . No significant pericardial effusion is visualized. Previous Study No prior exam available for comparison. Signature Findings Left Ventricle The left ventricle is chamber size (by PSLAX dimension) is mildly enlarged (male - LVIDd 5.9-6.3cm) . Mild septal hypertrophy is present. All of the LV segments contract normally . Global LV systolic function normal . Estimated LVEF by qualitative assessment is normal (>60%) . LV endocardium is adequately visualized with IV ultrasound enhancing agent. Normal (cardiac index 2-3 L/min/m2) cardiac output state at rest is noted. Left Atrium LA size is mildly enlarged (35-41 ml/m2) . Right Ventricle RV chamber size is mildly enlarged . Global RV systolic function is normal . Right Atrium RA cavity size appears normal . The RA is partially visualized. Aortic Valve Mild AoV cusp calcification. Mitral Valve Mild MV leaflet thickening. Mild mitral annular calcification. Mild mitral regurgitation. Tricuspid Valve Mild tricuspid regurgitation. Estimated peak systolic PA pressure is 50-55 mmHg . Pulmonic Valve Normal PV structure and function by limited views and Doppler. Aorta Aortic root size (SInus of Valsalva diameter) is normal . Pericardium No significant pericardial effusion is visualized. IVC/SVC/PA/PV/Pleural The right upper pulmonary vein (RUPV) is normal . The estimated RA pressure by IVC dynamics 5-10mmHg . Chambers/Structures Left Atrium LA Volume: 83.2 ml LA Area: 26.19 cm^2 LA Vol. Index: 37 ml/m^2 Left Ventricle LVIDd: 5.98 cm LV Septum Diastolic: 1.22 cm LV PW Diastolic: 0.95 cm LVEDV Talley's:140.46 ml LVESV Talley's:38.26 ml LVEF Talley's: 72.8 % LVEDVI: 62 ml/m^2 LVESVI: 17 ml/m^2 LVOT Diameter: 2.27 cm Right Ventricle TAPSE: 2.06 cm Aorta Ao Root S of [place].: 3.53 cm Doppler/Quantitative Measurements Mitral Valve MV Peak E-Wave: 0.92 m/s MV Peak A-Wave: 1.49 m/s E/A Ratio: 0.62 Peak Gradient: 3.42 mmHg Deceleration Time: 275.1 msec MV Wai. Peak: Tissue Doppler E' Lateral Velocity: 0.08 m/s E/E': 12.01 Aortic Valve Peak Velocity: 1.83 m/s Mean Velocity: 1.37 m/s Peak Gradient: 13.39 mmHg Mean Gradient: 8.23 mmHg AV Area (continuity): 2.89 cm^2 AV VTI: 42.09 cm AV DVI: 0.71 LVOT Peak Velocity: 1.18 m/s Peak Gradient: 5.61 mmHg Mean Velocity: 0.86 m/s Mean Gradient: 3.3 mmHg LVOT Diameter: 2.27 cm LVOT VTI: 30.06 cm LVOT Area: 4.05 cm^2 LVOT SV:121.59 ml LVOT CO: 6.44 l/min LVOT CI: 2.84 l/min/m^2 Tricuspid Valve TR Velocity: 3.43 m/s TR Gradient: 46.92 mmHg Performing Organization Address City/[facility] Phone Number [facility] CPACS Troponin I (06/16/2018 11:00 AM TRANSPORTATION JOB TITLES)Only the most recent of2 resultswithin the time period is included. Troponin I 0.07 (H) 0.00 - 0.03 ng/mL [facility] Specimen Blood Narrative Performed At Troponin I (TnI) levels must be interpreted [facility] in the context of the presenting symptoms and the clinical findings. Elevated TnI levels indicate myocardial damage, but are not specific for ischemic heart disease. Elevated TnI levels are seen in patients with other cardiac conditions (including myocarditis and congestive heart failure), and slight TnI elevations occur in patients with other conditions, including sepsis, renal failure, acidosis, acute neurological disease, and persistent tachyarrhythmia. Performing Organization Address City/[facility]/Zipcode Phone Number [address] [address] CENTER Hepatitis panel, acute (06/16/2018 11:00 AM TRANSPORTATION JOB TITLES) Hep A IgM HEPATITIS A TEST NEGATIVE Nonreactive [facility] Hep B C IgM NON-REACTIVE Nonreactive [facility] Hepatitis C Ab NON-REACTIVE Nonreactive [facility] hepatitis B Surface Ag NON-REACTIVE Nonreactive [facility] Specimen Blood Performing Organization Address City/[facility]/Zipcode Phone Number [address] [address] [place] B-type Natriuretic Factor (BNP) (06/16/2018 11:00 AM TRANSPORTATION JOB TITLES) BNP 409 (H) 0 - 100 pg/mL [facility] Specimen Blood Performing Organization Address [facility]/Zipcode Phone Number [address] [place] [address] abdomen/pelvis with IV contrast (06/16/2018 8:59 AM TRANSPORTATION JOB TITLES) Specimen Narrative Performed At FINAL REPORT [employer] [facility] [[email or web address]] DOSE REDUCTION: The examination was performed according to departmental dose-optimization program which includes automated exposure control, adjustment of the mA and/or kV according to patient size and/or use of iterative reconstruction technique. TECHNIQUE: CT of the abdomen and pelvis with intravenous contrast. COMPARISON: None Discussion: Atelectasis/fibrotic changes in the lung bases seen. There is decreased liver density suggestive of fatty infiltration. No definite suspicious liver lesion. Spleen, pancreas, adrenal glands are unremarkable. Gallstones are seen. No definite CT findings of cholecystitis. No gross bile duct dilatation. There is a lobulated benign-appearing cyst in the left kidney measuring 2.4 x 3.0 cm. Otherwise left kidney and ureter appear unremarkable. Subcentimeter right renal hypodensities are too small to characterize. Right renal cortical irregularities are seen. There is colonic diverticulosis. No findings of diverticulitis. Otherwise unopacified small bowel, colon, and appendix appear unremarkable. No ascites. No lymphadenopathy. Aorta and IVC are normal in caliber. Status post prostatectomy. Bladder is grossly unremarkable. No definite suspicious osseous lytic or blastic lesions. No acute skeletal abnormality. IMPRESSION: 1. Cholelithiasis. If there is concern for cholecystitis, ultrasound and/or HIDA scan recommended. 2. Decreased liver density consistent with fatty infiltration. 3. Left renal cyst. Right renal hypodensities too small to characterize, and right renal cortical irregularities. 4. Colonic diverticulosis. Signed: Benjamin Rangel MD Report Verified Date/Time:06/16/2018 12:17:32 Reading Location: [address] Transitional Reading Room Procedure Note Interface, External Ris In - 06/16/2018 12:19 PM TRANSPORTATION JOB TITLES FINAL REPORT DOSE REDUCTION: The examination was performed according to departmental dose-optimization program which includes automated exposure control, adjustment of the mA and/or kV according to patient size and/or use of iterative reconstruction technique. TECHNIQUE: CT of the abdomen and pelvis with intravenous contrast. COMPARISON: None Discussion: Atelectasis/fibrotic changes in the lung bases seen. There is decreased liver density suggestive of fatty infiltration. No definite suspicious liver lesion. Spleen, pancreas, adrenal glands are unremarkable. Gallstones are seen. No definite CT findings of cholecystitis. No gross bile duct dilatation. There is a lobulated benign-appearing cyst in the left kidney measuring 2.4 x 3.0 cm. Otherwise left kidney and ureter appear unremarkable. Subcentimeter right renal hypodensities are too small to characterize. Right renal cortical irregularities are seen. There is colonic diverticulosis. No findings of diverticulitis. Otherwise unopacified small bowel, colon, and appendix appear unremarkable. No ascites. No lymphadenopathy. Aorta and IVC are normal in caliber. Status post prostatectomy. Bladder is grossly unremarkable. No definite suspicious osseous lytic or blastic lesions. No acute skeletal abnormality. IMPRESSION: 1. Cholelithiasis. If there is concern for cholecystitis, ultrasound and/or HIDA scan recommended. 2. Decreased liver density consistent with fatty infiltration. 3. Left renal cyst. Right renal hypodensities too small to characterize, and right renal cortical irregularities. 4. Colonic diverticulosis. Signed: Benjamin Rangel MD Report Verified Date/Time: 06/16/2018 12:17:32 Reading Location: [facility] Transitional Reading Room Performing Organization Address City/State/Zipcode Phone Number GE RIS CBC (Hemogram only) (06/16/2018 4:57 AM TRANSPORTATION JOB TITLES) WBC 8.1 3.5 - 10.5 K/L [facility] RBC 3.85 (L) 4.63 - 6.08 M/L [facility] Hemoglobin 12.1 (L) 13.7 - 17.5 GM/DL [facility] Hematocrit 37.1 (L) 40.1 - 51.0 % [facility] MCV 96.4 (H) 79.0 - 92.2 fL [facility] MCH 31.4 25.7 - 32.2 pg [facility] MCHC 32.6 32.3 - 36.5 GM/DL [facility] RDW 15.1 (H) 11.6 - 14.4 % [facility] Platelets 174 150 - 450 K/CU MM [facility] MPV 11.2 9.4 - 12.4 fL [facility] nRBC 0 0 - 0 /100 WBC [facility] Specimen Blood Performing Organization Address City/[facility]/Zipcode Phone Number [facility] [address] [place] [address] CENTER after 10/04/2017 Insurance Payer Benefit Plan / Group Subscriber ID Type Phone Address [employer] - MEDICARE MGD [employer] MEDICARE ADV xxxxxxxxx Maps Contracted CARE Advance Directives For more information, please contact:[address] [phone] Code Status Date Activated Date Inactivated Comments Full Code 06/16/2018 2:06 AM 07/20/2018 2:06 PM This code status was determined by: Patient
--- OUTSIDE RECORDS SUMMARY | 2018-10-05 06:55 | XMS REPORT ---
[...] End Status Dosage System Date Date Cozaar [facility] 40144928589 50 MG Orally Active 1 tablet Once a day Meclizine HCl ND 97886499656 12.5 MG Orally Active 2 tablets as Once a day needed Metformin HCl [facility] 85369994811 500 MG Active TAKE 1 TABLET BY MOUTH EVERY MORNING Symbicort [facility] 61804531525 160-4.5 MCG/ACT Active 2 puffs Inhalation Twice a day Ventolin HFA [facility] 10346607049 108 (90 Base) Active 2 puffs as MCG/ACT needed Inhalation every 6 hrs Cozaar [facility] 62938434281 50 MG Orally Inactive 1 tablet Once a day Aspirin Adult [facility] 75610814143 81 MG Orally Active 1 tablet Low Dose Once a day Cetirizine [facility] 41157703056 10 MG Orally Active 1 tablet HCl Once a day Cetirizine [facility] 63545580472 10 MG Active TOME ALEX HCl TABLETA POR VIA ORAL TOD[place] NEEDED FOR ALLERGIES Lyrica ND 71166529904 100 MG Orally October 26, Active 1 capsule two times a day 2017 Zyrtec [facility] 40075006250 10 MG Orally Active 1 tablet Allergy Once a day Ultram [facility] 90842867904 50 MG Orally Active 1 tablet as every 6 hrs needed Losartan [facility] 64508068439 50 MG Active TOME ALEX Potassium TABLETA POR VIA ORAL [place] Losartan [facility] 07566040477 100 MG Orally Active 1 tablet Potassium Once a day Metformin HCl [facility] 79605062303 500 MG Orally Active 1 tablet Twice a day with meals Results No Known Results Summary Purpose eClinicalWorks Submission
--- OUTSIDE RECORDS SUMMARY | 2018-10-05 06:55 | XMS REPORT ---
:1930 [facility] [address] [place] [address] Dr. Gandhi [address] [place] [address] Care Team Providers Name Role Phone NANI THACKER Unavailable Unavailable ISIDRASEETELVINA Ralph-BRAXTON ARROYO-AHMED Unavailable Unavailable Problems This patient has no known problems. Allergies, Adverse Reactions, Alerts This patient has no known allergies or adverse reactions. Medications This patient has no known medications. Results Test Description Test Time Test Comments Text Results Atomic Results Result Comments [place], ERCP 2018-07-20 Reason for FINAL REPORT PATIENT ID: 17:13:00 exam:->choledocholithiasis [id number] TECHNIQUE: Fluoroscopic images from endoscopic retrograde cholangiopancreatography were submitted for interpretation. INDICATION: choledocholithiasis. COMPARISON: None. 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 Subsequent images show interrogation of the biliary system. Fluoroscopy time: 2.5 minutesImages: 10 IMPRESSION:Fluoroscopic images from an endoscopic retrograde cholangiopancreatography not obtained by the undersigned. Please refer to the endoscopy note for details of the procedure and findings. Signed: Danny Fontaine MDReport Verified Date/Time: 07/20/2018 17:13:19 Reading Location: [address] Radiology Reading Room -GLUCOSE METER 2018-07-20 14:48:00 Test Item Value Reference Range Comments POC-GLUCOSE METER (BEAKER) (test 106 mg/dL 70-[address] [facility] [address] [facility] mjtw=[id number]) [employer] [address] BLOOD [id number] 01:00:00 Test Item Value Reference Range Comments CULTURE (BEAKER) (test zgaa=0941) No growth in 5 days BLOOD [id number] 01:00:00 Test Item Value Reference Range Comments CULTURE (PORFIRIO) (test icme=8944) No growth in 5 days OVA AND PARASITE [id number] 10:55:00 Test Item Value Reference Range Comments DIRECT SMEAR - O\T\P No ova or parasites seen No ova or parasites seen (PORFIRIO) (test fqrl=037) PET, CARDIAC PERFUSION MULTIPLE STUDIES, REST AND [id number] 17:03: 00Reason for exam:->preop risk stratificationFINAL REPORT PROCEDURE: Rest/Stress MYOCARDIAL PERFUSION PET with regadenoson\ XA9\ CPT CODE: 20325 INDICATION: Preoperative stratification cholecystectomy HISTORY: Cardiac risk factors: BMI 41.2, diabetes mellitus, hypertension, obesity. Other cardiovascular history: No reported CAD.. Recent cardiac symptoms: Dyspnea. Current cardiovascular-related medications: Losartan. PROTOCOL: Limited low-dose CT imaging was performed for attenuation correction. 40.1 mCi of Rb-82 chloride was injected iv at rest, and gated PET (positron emission tomography) images wereobtained. Subsequently, 40.1 mCi of Rb-82 chloride was injected iv at expected peak pharmacologic effect , and gated PET images were obtained. PRELIMINARY [...] LVEF at stress is 73%. IMPRESSION: 1. Normalstudy. 2. Appropriate pharmacologic stress. 3. Normal myocardial perfusion. 4. Normal resting LV function. Normal stress function. 5. Normal extracardiac tracer distribution. 6. . NONINVASIVERISK STRATIFICATION: The above findings are considered low risk (< 1% annual mortality rate) basedon the following criterion:- Normal or small myocardial perfusion defect at rest or with stressJACC.2012;59(9):857-81.) Signed: Julio Cesar Dangelo Verified Date/Time: 06/20/2018 17:03:56 Reading Location: [address] P327[facility] Reading Room Electronically signed by: Greg ROBERTS 06/20/2018 05:03 PMPOCT-GLUCOSE [id number] 13:17: 00 Test Item Value Reference Range Comments POC-GLUCOSE METER (BEAKER) 118 mg/dL 70-[address] [facility] [address] [facility] (test ecdy=7740) [employer] [address] CBC W/PLT COUNT & AUTO [id number] 08:15:00 Test Item Value Reference Range Comments WHITE BLOOD CELL COUNT (BEAKER) (test ntzy=353) 8.0 K/ L 3.5-10.5 RED BLOOD CELL COUNT (BEAKER) (test jnha=437) 3.89 M/ L 4.63-6.08 HEMOGLOBIN (BEAKER) (test khdg=513) 12.5 GM/DL 13.7-17.5 HEMATOCRIT (BEAKER) (test vfjv=865) 37.3 % 40.1-51.0 MEAN CORPUSCULAR VOLUME (BEAKER) (test mfzi=043) 95.9 fL 79.0-92.2 MEAN CORPUSCULAR HEMOGLOBIN (BEAKER) (test 32.1 pg 25.7-32.2 ypeb=233) MEAN CORPUSCULAR HEMOGLOBIN CONC (BEAKER) (test 33.5 GM/DL 32.3-36.5 ddmc=368) RED CELL DISTRIBUTION WIDTH (BEAKER) (test 14.8 % 11.6-14.4 sami=007) PLATELET COUNT (BEAKER) (test xwhk=550) 210 K/CU MM 150-450 MEAN PLATELET VOLUME (BEAKER) (test iabx=823) 11.6 fL 9.4-12.4 NUCLEATED RED BLOOD CELLS (BEAKER) (test 0 /100 WBC 0-0 evfw=245) NEUTROPHILS RELATIVE PERCENT (BEAKER) (test 62 % dphc=118) LYMPHOCYTES RELATIVE PERCENT (BEAKER) (test 23 % wgyo=422) MONOCYTES RELATIVE PERCENT (BEAKER) (test 11 % flbz=421) EOSINOPHILS RELATIVE PERCENT (BEAKER) (test 3 % vpzl=574) BASOPHILS RELATIVE PERCENT (BEAKER) (test 0 % jkpu=447) NEUTROPHILS ABSOLUTE COUNT (BEAKER) (test 4.95 K/ L 1.78-5.38 adww=971) LYMPHOCYTES ABSOLUTE COUNT (BEAKER) (test 1.82 K/ L 1.32-3.57 yctj=287) MONOCYTES ABSOLUTE COUNT (BEAKER) (test 0.88 K/ L 0.30-0.82 ufoa=612) EOSINOPHILS ABSOLUTE COUNT (BEAKER) (test 0.24 K/ L 0.04-0.54 xqvj=233) BASOPHILS ABSOLUTE COUNT (BEAKER) (test 0.02 K/ L 0.01-0.08 yitj=946) IMMATURE GRANULOCYTES-RELATIVE PERCENT (BEAKER) 1 % 0-1 (test bqal=7148) [id number] 08:14:00 Test Item Value Reference Range Comments PHOSPHORUS (BEAKER) (test hjkr=481) 3.4 mg/dL 2.3-4.7 [id number] 08:14:00 Test Item Value Reference Range Comments MAGNESIUM (BEAKER) (test yvbg=287) 1.8 mg/dL 1.6-2.6 COMPREHENSIVE METABOLIC [id number] 08:14:00 Test Item Value Reference Range Comments TOTAL PROTEIN (BEAKER) 6.2 gm/dL 6.0-8.3 (test uudw=669) ALBUMIN (BEAKER) (test 3.1 g/dL 3.5-5.0 cvez=3776) ALKALINE PHOSPHATASE 160 U/L 40-150 (BEAKER) (test jbsc=431) BILIRUBIN TOTAL (BEAKER) 1.0 mg/dL 0.2-1.2 (test buwj=414) SODIUM (BEAKER) (test 147 meq/L 136-145 vwce=907) POTASSIUM (BEAKER) (test 3.5 meq/L 3.5-5.1 vtcr=389) CHLORIDE (BEAKER) (test 111 meq/L 98-107 kbsb=788) CO2 (BEAKER) (test 25 meq/L 22-29 nlzd=683) BLOOD UREA NITROGEN 25 mg/dL 7-21 (BEAKER) (test rxas=381) CREATININE (BEAKER) (test 1.19 mg/dL 0.57-1.25 tfgg=260) GLUCOSE RANDOM (BEAKER) 93 mg/dL 70-105 (test hqgm=619) CALCIUM (BEAKER) (test 8.7 mg/dL 8.4-10.2 pixv=644) AST (SGOT) (BEAKER) (test 39 U/L 5-34 ezfn=852) ALT (SGPT) (BEAKER) (test 99 U/L 6-55 pczw=162) EGFR (BEAKER) (test 58 mL/min/1.73 sq m ESTIMATED GFR IS NOT swvd=9840) ACCURATE CREATININE CLEARANCE IN PREDICTING GLOMERULAR FILTRATION RATE. ESTIMATED GFR IS NOT APPLICABLE FOR DIALYSIS PATIENTS. POCT-GLUCOSE [id number] 08:00:00 Test Item Value Reference Range Comments POC-GLUCOSE METER (BEAKER) 104 mg/dL 70-110 TESTED AT [address] (test ooxg=8614) [place] [address] POCT-GLUCOSE [id number] 23:38:00 Test Item Value Reference Range Comments POC-GLUCOSE METER (BEAKER) 102 mg/dL 70-110 TESTED AT [address] (test gjoh=1839) [facility] [employer] [employer] [facility] [employer] [address] [place], [id number] 20:37:00Reason for exam:->ercp with fluoroscopyFINAL REPORT ERCP 6 views 06/19/2018 8:37 PM CLINICAL HISTORY: Instrument localization COMPARISON: None available IMPRESSION: Please correlate imaging report findings with the procedure note prepared by Dr. Thacker, as an intra-procedure imaging consultation was not requested. Reported fluoroscopy time: 55.9 seconds. Signed: Yazan Starr Verified Date/Time: 201820:37:17 Reading Location: [facility] Radiology Reading Room POCT- GLUCOSE [id number] 18:28:00 Test Item Value Reference Range Comments POC-GLUCOSE METER (BEAKER) 137 mg/dL 70-110 TESTED AT [address] (test etkx=0881) [place] [id number] POCT-GLUCOSE [id number] 12:36:00 Test Item Value Reference Range Comments POC-GLUCOSE METER (BEAKER) 89 mg/dL 70-[address] [facility] [address] (test rvae=1849) [place] [address] CBC W/PLT COUNT & AUTO [id number] 06:37:00 Test Item Value Reference Range Comments WHITE BLOOD CELL COUNT (BEAKER) (test pgrw=263) 7.3 K/ L 3.5-10.5 RED BLOOD CELL COUNT (BEAKER) (test byqn=108) 4.06 M/ L 4.63-6.08 HEMOGLOBIN (BEAKER) (test hpbu=366) 12.9 GM/DL 13.7-17.5 HEMATOCRIT (BEAKER) (test wugm=038) 39.3 % 40.1-51.0 MEAN CORPUSCULAR VOLUME (BEAKER) (test nugh=410) 96.8 fL 79.0-92.2 MEAN CORPUSCULAR HEMOGLOBIN (BEAKER) (test 31.8 pg 25.7-32.2 tcaj=974) MEAN CORPUSCULAR HEMOGLOBIN CONC (BEAKER) (test 32.8 GM/DL 32.3-36.5 hlgb=593) RED CELL DISTRIBUTION WIDTH (BEAKER) (test 15.0 % 11.6-14.4 hvia=142) PLATELET COUNT (BEAKER) (test nbnc=063) 185 K/CU MM 150-450 MEAN PLATELET VOLUME (BEAKER) (test vbnx=928) 11.3 fL 9.4-12.4 NUCLEATED RED BLOOD CELLS (BEAKER) (test 0 /100 WBC 0-0 xgzr=117) NEUTROPHILS RELATIVE PERCENT (BEAKER) (test 56 % vylq=006) LYMPHOCYTES RELATIVE PERCENT (BEAKER) (test 24 % fgqw=931) MONOCYTES RELATIVE PERCENT (BEAKER) (test 16 % kcwo=855) EOSINOPHILS RELATIVE PERCENT (BEAKER) (test 3 % pyxd=114) BASOPHILS RELATIVE PERCENT (BEAKER) (test 1 % rcpk=447) NEUTROPHILS ABSOLUTE COUNT (BEAKER) (test 4.05 K/ L 1.78-5.38 ozpd=750) LYMPHOCYTES ABSOLUTE COUNT (BEAKER) (test 1.74 K/ L 1.32-3.57 yqid=021) MONOCYTES ABSOLUTE COUNT (BEAKER) (test 1.16 K/ L 0.30-0.82 iepe=635) EOSINOPHILS ABSOLUTE COUNT (BEAKER) (test 0.23 K/ L 0.04-0.54 rtwv=703) BASOPHILS ABSOLUTE COUNT (BEAKER) (test 0.04 K/ L 0.01-0.08 rfdp=943) IMMATURE GRANULOCYTES-RELATIVE PERCENT (BEAKER) 1 % 0-1 (test sjqd=3158) BASIC METABOLIC [id number] 06:29:00 Test Item Value Reference Range Comments SODIUM (BEAKER) (test 144 meq/L 136-145 stqe=084) POTASSIUM (BEAKER) (test 3.7 meq/L 3.5-5.1 Specimen slightly tupw=704) hemolyzed CHLORIDE (BEAKER) (test 112 meq/L 98-107 jbji=190) CO2 (BEAKER) (test 24 meq/L 22-29 fdld=819) BLOOD UREA NITROGEN 18 mg/dL 7-21 (BEAKER) (test gggi=541) CREATININE (BEAKER) (test 1.14 mg/dL 0.57-1.25 Specimen slightly pkok=477) hemolyzed GLUCOSE RANDOM (BEAKER) 112 mg/dL 70-105 (test cwxt=611) CALCIUM (BEAKER) (test 8.9 mg/dL 8.4-10.2 vlbo=720) EGFR (BEAKER) (test 61 mL/min/1.73 sq m ESTIMATED GFR IS NOT dcvz=6367) ACCURATE CREATININE CLEARANCE IN PREDICTING GLOMERULAR FILTRATION RATE. ESTIMATED GFR IS NOT APPLICABLE FOR DIALYSIS PATIENTS. HEPATIC FUNCTION [id number] 06:29:00 Test Item Value Reference Range Comments TOTAL PROTEIN (BEAKER) (test 6.2 gm/dL 6.0-8.3 Specimen slightly hemolyzed iowa=875) ALBUMIN (BEAKER) (test 3.0 g/dL 3.5-5.0 Specimen slightly hemolyzed ethb=0294) BILIRUBIN TOTAL (BEAKER) (test 0.8 mg/dL 0.2-1.2 Specimen slightly hemolyzed dvzr=564) BILIRUBIN DIRECT (BEAKER) (test 0.4 mg/dL 0.1-0.5 Specimen slightly hemolyzed pqhw=544) ALKALINE PHOSPHATASE (BEAKER) 175 U/L 40-150 (test iasl=499) AST (SGOT) (BEAKER) (test 37 U/L 5-34 Specimen slightly hemolyzed meac=388) ALT (SGPT) (BEAKER) (test 119 U/L 6-55 Specimen slightly hemolyzed muur=305) POCT-GLUCOSE [id number] 22:29:00 Test Item Value Reference Range Comments POC-GLUCOSE METER (BEAKER) 120 mg/dL 70-110 TESTED AT [address] (test auvs=9829) [facility] [employer] [employer] [facility] [employer] [address] POCT-GLUCOSE [id number] 18:31:00 Test Item Value Reference Range Comments POC-GLUCOSE METER (BEAKER) 161 mg/dL 70-110 TESTED AT [address] (test ohcv=1212) [place] [id number] STOOL CULTURE + SHIGA [id number] 15:49:00 Test Item Value Reference Range Comments CULTURE (BEAKER) (test No Salmonella, Shigella or uwtv=0925) Campylobacter isolated POCT-GLUCOSE [id number] 09:45:00 Test Item Value Reference Range Comments POC-GLUCOSE METER (BEAKER) 106 mg/dL 70-110 TESTED AT [address] (test zyys=7351) [employer] [address] HEPATIC FUNCTION [id number] 08:31:00 Test Item Value Reference Range Comments TOTAL PROTEIN (BEAKER) (test xjmt=194) 6.6 gm/dL 6.0-8.3 ALBUMIN (BEAKER) (test yeao=7200) 3.2 g/dL 3.5-5.0 BILIRUBIN TOTAL (BEAKER) (test vxpu=857) 1.1 mg/dL 0.2-1.2 BILIRUBIN DIRECT (BEAKER) (test sbiu=307) 0.7 mg/dL 0.1-0.5 ALKALINE PHOSPHATASE (BEAKER) (test ouhu=849) 205 U/L 40-150 AST (SGOT) (BEAKER) (test ztpl=264) 63 U/L 5-34 ALT (SGPT) (BEAKER) (test ypea=702) 166 U/L 6-55 BASIC METABOLIC [id number] 08:31:00 Test Item Value Reference Range Comments SODIUM (BEAKER) (test 142 meq/L 136-145 ivaj=660) POTASSIUM (BEAKER) (test 3.3 meq/L 3.5-5.1 ayzu=560) CHLORIDE (BEAKER) (test 107 meq/L 98-107 gnvw=982) CO2 (BEAKER) (test 28 meq/L 22-29 uzal=468) BLOOD UREA NITROGEN 16 mg/dL 7-21 (BEAKER) (test sofq=375) CREATININE (BEAKER) (test 1.15 mg/dL 0.57-1.25 kupj=867) GLUCOSE RANDOM (BEAKER) 98 mg/dL 70-105 (test bnlm=737) CALCIUM (BEAKER) (test 8.8 mg/dL 8.4-10.2 slyc=865) EGFR (BEAKER) (test 60 mL/min/1.73 sq m ESTIMATED GFR IS NOT msry=7406) ACCURATE CREATININE CLEARANCE IN PREDICTING GLOMERULAR FILTRATION RATE. ESTIMATED GFR IS NOT APPLICABLE FOR DIALYSIS PATIENTS. MR, ABDOMEN, [id number] 08:31:00FINAL REPORT MRI of the abdomen, MRCP. MEDICAL [...] noncontrast study. The spleen is unremarkable. Atrophic changesare seen in both kidneys. No adrenal abnormalities identified. There is a 2.4 cm increased T2 and decreased T1 weighted left renal lesion as well as other lesions in the kidneys, statistically most likely cysts. Within the inter to upper polar portion of the right kidney is a 1.6 cm increased T1, decreased T2-weighted lesion which is incompletely characterized on this noncontrast study. A hemorrhagicor proteinaceous cyst would be possible but this [...] up to 1.0 cm in size. Two calculiare also seen in the common hepatic duct. The pancreatic duct is dilated measuring up to 5 mm. The visualized osseous structures demonstrate degenerative changes. IMPRESSION:1. Cholelithiasis with gallbladder wall thickening and significant choledocholithiasis with dilatation of the CBD.2. Large duodenal diverticulum.3. Dilatation of the pancreatic duct. Lack of contrast limits assessment for masses.4. Renal cysts as well as indeterminate right renal lesion which would be better assessed with a renal protocol CT scan or MRI. Signed: Martínez Rileyeport Verified Date/Time: 06/18/2018 08:31: 40 Reading Location: [facility] Diagnostic Imaging Reading Room - [place] [address] PROTHROMBIN [id number] 08:20:00 Test Item Value Reference Range Comments PROTIME (BEAKER) (test tunw=119) 14.0 seconds 11.7-14.7 INR (BEAKER) (test wbll=638) 1.1 <=5.9 RECOMMENDED COUMADIN/WARFARIN INR THERAPY RANGESSTANDARD DOSE: 2.0 - 3.0 Includes: PROPHYLAXIS forvenous thrombosis, systemic embolization; TREATMENT for venous thrombosis and/or pulmonary embolus.HIGH RISK: Target INR is 2.5-3.5 for patients with mechanical heart valves.CBC W/PLT COUNT & AUTO [id number] 08:04:00 Test Item Value Reference Range Comments WHITE BLOOD CELL COUNT (BEAKER) (test gkxz=508) 5.8 K/ L 3.5-10.5 RED BLOOD CELL COUNT (BEAKER) (test ltvz=273) 4.24 M/ L 4.63-6.08 HEMOGLOBIN (BEAKER) (test tayq=919) 13.5 GM/DL 13.7-17.5 HEMATOCRIT (BEAKER) (test ycxe=465) 40.4 % 40.1-51.0 MEAN CORPUSCULAR VOLUME (BEAKER) (test cdlc=896) 95.3 fL 79.0-92.2 MEAN CORPUSCULAR HEMOGLOBIN (BEAKER) (test 31.8 pg 25.7-32.2 ffvs=898) MEAN CORPUSCULAR HEMOGLOBIN CONC (BEAKER) (test 33.4 GM/DL 32.3-36.5 mmyd=850) RED CELL DISTRIBUTION WIDTH (BEAKER) (test 14.9 % 11.6-14.4 omhb=938) PLATELET COUNT (BEAKER) (test hpqp=400) 196 K/CU MM 150-450 MEAN PLATELET VOLUME (BEAKER) (test gzzd=321) 11.7 fL 9.4-12.4 NUCLEATED RED BLOOD CELLS (BEAKER) (test 0 /100 WBC 0-0 tnhp=404) NEUTROPHILS RELATIVE PERCENT (BEAKER) (test 63 % mssd=361) LYMPHOCYTES RELATIVE PERCENT (BEAKER) (test 19 % snfy=168) MONOCYTES RELATIVE PERCENT (BEAKER) (test 15 % xdne=458) EOSINOPHILS RELATIVE PERCENT (BEAKER) (test 2 % jjbh=765) BASOPHILS RELATIVE PERCENT (BEAKER) (test 1 % wxsp=755) NEUTROPHILS ABSOLUTE COUNT (BEAKER) (test 3.67 K/ L 1.78-5.38 hjxp=251) LYMPHOCYTES ABSOLUTE COUNT (BEAKER) (test 1.09 K/ L 1.32-3.57 ukyo=660) MONOCYTES ABSOLUTE COUNT (BEAKER) (test 0.89 K/ L 0.30-0.82 fozk=529) EOSINOPHILS ABSOLUTE COUNT (BEAKER) (test 0.09 K/ L 0.04-0.54 hcvt=941) BASOPHILS ABSOLUTE COUNT (BEAKER) (test 0.03 K/ L 0.01-0.08 xtru=674) IMMATURE GRANULOCYTES-RELATIVE PERCENT (BEAKER) 0 % 0-1 (test wsmo=7474) POCT-GLUCOSE [id number] 22:01:00 Test Item Value Reference Range Comments POC-GLUCOSE METER (BEAKER) 119 mg/dL 70-110 TESTED AT [address] (test bbyh=9373) [place] [id number] POCT-GLUCOSE [id number] 18:20:00 Test Item Value Reference Range Comments POC-GLUCOSE METER (BEAKER) 201 mg/dL 70-110 TESTED AT [address] (test wqup=4018) [place] [id number] C. DIFFICILE GDH [id number] 15:21:00 Test Item Value Reference Range Comments CDT TOXIN (test Negative Negative evqc=[id number]) CDT GDH ANTIGEN (test Negative Negative No indication of Clostridium vaqv=[id number]) difficile infection and no colonization. Discontinue enteric isolation and therapy. Testing performed by [employer] Rapid [employer]ette Assay. For GDH, published sensitivity of the assay is 98.7% compared to cytotoxicity testing. For Toxin AB, published sensitivity is 87.8% and specificity 99.4% compared to cytotoxicity testing.Verification of kit performance was done by the [facility] Microbiology Lab prior to clinical use.POCT-GLUCOSE [id number] 15:11:00 Test Item Value Reference Range Comments POC-GLUCOSE METER (BEAKER) 108 mg/dL 70-[address] [facility] [address] (test uvzu=0422) [facility] [employer] [facility] [address] STOOL PATH [id number] 10:36:00 Test Item Value Reference Range Comments PATHOGEN EXAM CHARGED (BEAKER) (test jjhv=9587) Done HEPATIC FUNCTION [id number] 09:56:00 Test Item Value Reference Range Comments TOTAL PROTEIN (BEAKER) (test wgtm=151) 6.3 gm/dL 6.0-8.3 ALBUMIN (BEAKER) (test ayhk=8823) 3.1 g/dL 3.5-5.0 BILIRUBIN TOTAL (BEAKER) (test xtwm=539) 1.5 mg/dL 0.2-1.2 BILIRUBIN DIRECT (BEAKER) (test unsk=705) 1.1 mg/dL 0.1-0.5 ALKALINE PHOSPHATASE (BEAKER) (test orua=729) 201 U/L 40-150 AST (SGOT) (BEAKER) (test dspu=163) 109 U/L 5-34 ALT (SGPT) (BEAKER) (test wuvs=935) 224 U/L 6-55 COMPREHENSIVE METABOLIC [id number] 09:56:00 Test Item Value Reference Range Comments TOTAL PROTEIN (BEAKER) 6.3 gm/dL 6.0-8.3 (test wzfg=061) ALBUMIN (BEAKER) (test 3.1 g/dL 3.5-5.0 zllg=5677) ALKALINE PHOSPHATASE 201 U/L 40-150 (BEAKER) (test pnzs=810) BILIRUBIN TOTAL (BEAKER) 1.5 mg/dL 0.2-1.2 (test anmp=050) SODIUM (BEAKER) (test 139 meq/L 136-145 gmxp=046) POTASSIUM (BEAKER) (test 3.4 meq/L 3.5-5.1 ccsi=788) CHLORIDE (BEAKER) (test 106 meq/L 98-107 upwx=613) CO2 (BEAKER) (test 26 meq/L 22-29 azuv=453) BLOOD UREA NITROGEN 17 mg/dL 7-21 (BEAKER) (test qyfg=189) CREATININE (BEAKER) (test 1.01 mg/dL 0.57-1.25 pbyu=011) GLUCOSE RANDOM (BEAKER) 121 mg/dL 70-105 (test onta=564) CALCIUM (BEAKER) (test 8.7 mg/dL 8.4-10.2 gbbw=043) AST (SGOT) (BEAKER) (test 109 U/L 5-34 ewvt=238) ALT (SGPT) (BEAKER) (test 224 U/L 6-55 njtw=631) EGFR (BEAKER) (test 70 mL/min/1.73 sq m ESTIMATED GFR IS NOT tfcx=6224) ACCURATE CREATININE CLEARANCE IN PREDICTING GLOMERULAR FILTRATION RATE. ESTIMATED GFR IS NOT APPLICABLE FOR DIALYSIS PATIENTS. POCT-GLUCOSE [id number] 09:36:00 Test Item Value Reference Range Comments POC-GLUCOSE METER (BEAKER) 112 mg/dL 70-[address] [facility] [address] [facility] (test tjym=4835) [employer] [address] CBC W/PLT COUNT & AUTO [id number] 09:30:00 Test Item Value Reference Range Comments WHITE BLOOD CELL COUNT (BEAKER) (test rzqs=997) 5.9 K/ L 3.5-10.5 RED BLOOD CELL COUNT (BEAKER) (test owtv=770) 3.88 M/ L 4.63-6.08 HEMOGLOBIN (BEAKER) (test wswu=650) 12.2 GM/DL 13.7-17.5 HEMATOCRIT (BEAKER) (test gzqu=656) 36.7 % 40.1-51.0 MEAN CORPUSCULAR VOLUME (BEAKER) (test shqx=883) 94.6 fL 79.0-92.2 MEAN CORPUSCULAR HEMOGLOBIN (BEAKER) (test 31.4 pg 25.7-32.2 idjl=962) MEAN CORPUSCULAR HEMOGLOBIN CONC (BEAKER) (test 33.2 GM/DL 32.3-36.5 hble=231) RED CELL DISTRIBUTION WIDTH (BEAKER) (test 14.8 % 11.6-14.4 irkq=443) PLATELET COUNT (BEAKER) (test geyn=833) 169 K/CU MM 150-450 MEAN PLATELET VOLUME (BEAKER) (test pujp=885) 11.2 fL 9.4-12.4 NUCLEATED RED BLOOD CELLS (BEAKER) (test 0 /100 WBC 0-0 squu=906) NEUTROPHILS RELATIVE PERCENT (BEAKER) (test 69 % jerw=793) LYMPHOCYTES RELATIVE PERCENT (BEAKER) (test 16 % bzgr=948) MONOCYTES RELATIVE PERCENT (BEAKER) (test 10 % jpso=241) EOSINOPHILS RELATIVE PERCENT (BEAKER) (test 3 % zffg=500) BASOPHILS RELATIVE PERCENT (BEAKER) (test 1 % jelv=757) NEUTROPHILS ABSOLUTE COUNT (BEAKER) (test 4.08 K/ L 1.78-5.38 juuy=463) LYMPHOCYTES ABSOLUTE COUNT (BEAKER) (test 0.94 K/ L 1.32-3.57 jevh=990) MONOCYTES ABSOLUTE COUNT (BEAKER) (test 0.60 K/ L 0.30-0.82 lmmw=311) EOSINOPHILS ABSOLUTE COUNT (BEAKER) (test 0.18 K/ L 0.04-0.54 iyye=793) BASOPHILS ABSOLUTE COUNT (BEAKER) (test 0.03 K/ L 0.01-0.08 etzk=592) IMMATURE GRANULOCYTES-RELATIVE PERCENT (BEAKER) 1 % 0-1 (test okjd=7934) POCT-GLUCOSE [id number] 07:13:00 Test Item Value Reference Range Comments POC-GLUCOSE METER (BEAKER) 111 mg/dL 70-[address] [facility] [address] [facility] (test hpuu=5325) [facility] [employer] [address] PROTHROMBIN [id number] 06:54:00 Test Item Value Reference Range Comments PROTIME (BEAKER) (test obpg=313) 13.9 seconds 11.7-14.7 INR (BEAKER) (test cxbd=411) 1.1 <=5.9 RECOMMENDED COUMADIN/WARFARIN INR THERAPY RANGESSTANDARD DOSE: 2.0 - 3.0 Includes: PROPHYLAXIS forvenous thrombosis, systemic embolization; TREATMENT for venous thrombosis and/or pulmonary embolus.HIGH RISK: Target INR is 2.5-3.5 for patients with mechanical heart valves.BLOOD GAS, [id number] 01:29:00 Test Item Value Reference Range Comments PH ARTERIAL (BEAKER) (test vgyl=496) 7.43 7.35-7.45 PCO2 ARTERIAL (BEAKER) (test edzv=650) 37 mmHg 35-45 PO2 ARTERIAL (BEAKER) (test ttee=550) 74 mmHg 80-90 O2 SATURATION ARTERIAL (BEAKER) (test dtvf=641) 95.4 % 96.0-97.0 HCO3 ARTERIAL (BEAKER) (test hhks=351) 24 mmol/L 21-29 BASE EXCESS ARTERIAL (BEAKER) (test gvbo=466) 0.4 mmol/L -2.0-3.0 PATIENT TEMPERATURE (BEAKER) (test csew=7593) 37.0 C FIO2 (BEAKER) (test wvqm=3081) 21.0 % POCT-GLUCOSE [id number] 21:27:00 Test Item Value Reference Range Comments POC-GLUCOSE METER (BEAKER) 169 mg/dL 70-110 TESTED AT [address] (test qfwj=0137) [facility] [address] RAD, CHEST, 1 VIEW, NON [id number] 19:27:00Reason for exam:-> tachypnicShould this be performed at the bedside?->YesFINAL REPORT INDICATION: tachypnic COMPARISON: None TECHNIQUE: Single frontalview of the chest. FINDINGS: Spurious elevation of the right hemidiaphragm and basilar subsegmental atelectasis. Superimposed infection within the left lower lobe may be excluded clinically. Although there is no dean airspace consolidation, reticular opacities are noted within the lateral left lung.IMPRESSION: Spurious elevation of the right hemidiaphragm and basilar subsegmental atelectasis. Superimposed infection within the left lower lobe may be excluded clinically. Although there is no dean airspace consolidation, reticular opacities are noted within the lateral left lung. Signed: Golden Rosenthal MDReport Verified Date/Time: 06/16/2018 19:27:33 Reading Location: [facility] [id number] Neuro ReadingRoom POCT-GLUCOSE [id number] 14:58:00 Test Item Value Reference Range Comments POC-GLUCOSE METER (BEAKER) 143 mg/dL 70-[address] [facility] [address] (test kcie=2145) [facility] [address] [address], [id number] 12:17:00FINAL REPORT DOSE REDUCTION : The examination was performed according to departmental [...] 3.0 cm. Otherwise left kidney and ureter appearunremarkable. Subcentimeter right renal hypodensities are too small to characterize. Right renal cortical irregularities are seen. There is colonic diverticulosis. No findings of diverticulitis. Otherwise unopacified small bowel, colon, and appendix appear unremarkable. No ascites. No lymphadenopathy.Aorta and IVC are normal in caliber. Status [...] irregularities. 4. Colonic diverticulosis. Signed: Benjamin Rangel MDReport Verified Date/Time: 06/16/2018 12:17:32 Reading Location: [address] Reading Room HEPATITIS PANEL, [id number] 12:01:00 Test Item Value Reference Range Comments HEPATITIS A IGM ANTIBODY (BEAKER) (test Nonreactive Nonreactive sawt=250) HEPATITIS B CORE IGM ANTIBODY (BEAKER) (test Nonreactive Nonreactive olaw=552) HEPATITIS C ANTIBODY (BEAKER) (test paqw=273) Nonreactive Nonreactive HEPATITIS B SURFACE ANTIGEN (2) (BEAKER) (test Nonreactive Nonreactive zltr=3955) TROPONIN [id number] 11:34:00 Test Item Value Reference Range Comments TROPONIN I (BEAKER) (test zatu=325) 0.07 ng/mL 0.00-0.03 Troponin I (TnI) levels must be interpreted in the context of the presenting symptoms and the clinical findings. Elevated TnI levels indicate myocardial damage, but are not specific for ischemic heart disease. Elevated TnI levels are seen in patients with other cardiac conditions (including myocarditis and congestive heart failure), and slight TnI elevations occur in patients with other conditions, including sepsis, renal failure, acidosis, acute neurological disease, and persistent tachyarrhythmia.B-TYPE NATRIURETIC FACTOR (BNP) 11:34:00 Test Item Value Reference Range Comments B-TYPE NATRIURETIC PEPTIDE (BEAKER) (test 409 pg/mL 0-100 rink=858) TROPONIN [id number] 05:43:00 Test Item Value Reference Range Comments TROPONIN I (BEAKER) (test aliq=234) 0.07 ng/mL 0.00-0.03 Troponin I (TnI) levels must be interpreted in the context of the presenting symptoms and the clinical findings. Elevated TnI levels indicate myocardial damage, but are not specific for ischemic heart disease. Elevated TnI levels are seen in patients with other cardiac conditions (including myocarditis and congestive heart failure), and slight TnI elevations occur in patients with other conditions, including sepsis, renal failure, acidosis, acute neurological disease, and persistent tachyarrhythmia.COMPREHENSIVE METABOLIC [id number] 05:39:00 Test Item Value Reference Range Comments TOTAL PROTEIN (BEAKER) 6.3 gm/dL 6.0-8.3 (test tlmc=116) ALBUMIN (BEAKER) (test 3.3 g/dL 3.5-5.0 qyrk=4070) ALKALINE PHOSPHATASE 217 U/L 40-150 (BEAKER) (test cxgo=778) BILIRUBIN TOTAL (BEAKER) 4.1 mg/dL 0.2-1.2 (test vgqj=115) SODIUM (BEAKER) (test 140 meq/L 136-145 jndx=642) POTASSIUM (BEAKER) (test 3.3 meq/L 3.5-5.1 dzkz=631) CHLORIDE (BEAKER) (test 109 meq/L 98-107 vhbs=252) CO2 (BEAKER) (test 23 meq/L 22-29 skdw=637) BLOOD UREA NITROGEN 22 mg/dL 7-21 (BEAKER) (test bivl=337) CREATININE (BEAKER) (test 1.14 mg/dL 0.57-1.25 rprg=275) GLUCOSE RANDOM (BEAKER) 112 mg/dL 70-105 (test xpwp=331) CALCIUM (BEAKER) (test 9.0 mg/dL 8.4-10.2 yuue=808) AST (SGOT) (BEAKER) (test 334 U/L 5-34 lbyh=759) ALT (SGPT) (BEAKER) (test 387 U/L 6-55 hydy=003) EGFR (BEAKER) (test 61 mL/min/1.73 sq m ESTIMATED GFR IS NOT sjnz=0486) ACCURATE CREATININE CLEARANCE IN PREDICTING GLOMERULAR FILTRATION RATE. ESTIMATED GFR IS NOT APPLICABLE FOR DIALYSIS PATIENTS. Specimen slightly ictericPOCT-GLUCOSE [id number] 05:33:00 Test Item Value Reference Range Comments POC-GLUCOSE METER (BEAKER) 125 mg/dL 70-[address] [facility] [address] [facility] (test vnxt=3004) [employer] [address] PROTHROMBIN TIME/[id number] 05:28:00 Test Item Value Reference Range Comments PROTIME (BEAKER) (test zvrb=601) 15.5 seconds 11.7-14.7 INR (BEAKER) (test llha=547) 1.2 <=5.9 RECOMMENDED COUMADIN/WARFARIN INR THERAPY RANGESSTANDARD DOSE: 2.0 - 3.0 Includes: PROPHYLAXIS forvenous thrombosis, systemic embolization; TREATMENT for venous thrombosis and/or pulmonary embolus.HIGH RISK: Target INR is 2.5-3.5 for patients with mechanical heart valves.CBC (HEMOGRAM ONLY)2018-06-16 05:13:00 Test Item Value Reference Range Comments WHITE BLOOD CELL COUNT (BEAKER) (test ypng=166) 8.1 K/ L 3.5-10.5 RED BLOOD CELL COUNT (BEAKER) (test smmc=245) 3.85 M/ L 4.63-6.08 HEMOGLOBIN (BEAKER) (test fzde=516) 12.1 GM/DL 13.7-17.5 HEMATOCRIT (BEAKER) (test snml=958) 37.1 % 40.1-51.0 MEAN CORPUSCULAR VOLUME (BEAKER) (test bsum=374) 96.4 fL 79.0-92.2 MEAN CORPUSCULAR HEMOGLOBIN (BEAKER) (test 31.4 pg 25.7-32.2 wvfs=037) MEAN CORPUSCULAR HEMOGLOBIN CONC (BEAKER) (test 32.6 GM/DL 32.3-36.5 jfbh=385) RED CELL DISTRIBUTION WIDTH (BEAKER) (test 15.1 % 11.6-14.4 ayes=910) PLATELET COUNT (BEAKER) (test hnjl=452) 174 K/CU MM 150-450 MEAN PLATELET VOLUME (BEAKER) (test urrr=961) 11.2 fL 9.4-12.4 NUCLEATED RED BLOOD CELLS (BEAKER) (test 0 /100 WBC 0-0 mtxt=118)
--- OUTSIDE RECORDS SUMMARY | 2018-10-05 06:56 | XMS REPORT ---
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 Problem Unsteady gait R26.81 Active Problem Hearing loss H91.90 Active Problem GERD (gastroesophageal reflux K21.9 Active disease) Problem Benign essential HTN I10 Active Problem Colonic polyp K63.5 Active Problem COPD (chronic obstructive pulmonary J44.9 Active disease) Problem Type 2 diabetes mellitus with other E11.69 Active specified complication Problem Diabetes E11.9 Active Medications Medication Code System Code Instructions Start Date End Date Status Dosage Lexapro [facility] 22202089083 10 MG Orally Once Jun 27, Active 1 tablet a day 2018 Results No Known Results Summary Purpose eClinicalWorks Submission
--- OUTSIDE RECORDS SUMMARY | 2018-10-05 06:56 | XMS REPORT ---
[...] specified complication Problem Diabetes E11.9 Active Medications No Known Medications Results No Known Results Summary Purpose eClinicalWorks Submission
--- OUTSIDE RECORDS SUMMARY | 2018-10-05 06:56 | XMS REPORT ---
[...] End Status Dosage System Date Date Losartan [facility] 47238992999 50 MG Active TOME ALEX Potassium TABLETA POR VIA ORAL TODOS [place] Aspirin Adult [facility] 60840907943 81 MG Orally Active 1 tablet Low Dose Once a day Cetirizine HCl [facility] 23210878285 10 MG Active TOME ALEX TABLETA POR VIA ORAL TODOS [place] NEEDED FOR ALLERGIES Cozaar [facility] 27933661423 50 MG Orally Active 1 tablet Once a day Zyrtec Allergy ND 67701986254 10 MG Orally Active 1 tablet Once a day Ventolin HFA [facility] 10521459760 108 (90 Base) Active 2 puffs as MCG/ACT needed Inhalation every 6 hrs Metformin HCl [facility] 54723335660 500 MG Active TAKE 1 TABLET BY MOUTH EVERY MORNING Symbicort ND 59219023742 160-4.5 MCG/ACT Jan 12, Active 2 puffs Inhalation 2018 Twice a day Losartan ND 63631883953 100 MG Orally Active 1 tablet Potassium Once a day Lyrica ND 36734847135 100 MG Orally Active 1 capsule three times a day Metformin HCl [facility] 02059623427 500 MG Orally Active 1 tablet Twice a day with meals Cetirizine HCl [facility] 43342546203 10 MG Orally Active 1 tablet Once a day Meclizine HCl [facility] 55587214338 12.5 MG Orally Active 2 tablets as Once a day needed Ultram [facility] 12806976582 50 MG Orally Active 1 tablet as every 6 hrs needed Flonase ND 79883812797 50 MCG/ACT Jan 17, Active 2 spray in Nasally Once a 2017 each nostril day Results No Known Results Summary Purpose eClinicalWorks Submission
--- OUTSIDE RECORDS SUMMARY | 2018-10-05 06:56 | XMS REPORT ---
:1930 Author Organization eClinicalWorks Care Team Providers Name Role Phone Koehler, Na Provider Role Unavailable Allergies, Adverse Reactions, Alerts Substance Reaction Event Type N.K.D.A. Info Not Available Non Drug Allergy Problems Problem Type Condition Code Onset Dates Condition Status Assessment Unsteady gait R26.81 Active Assessment Renal insufficiency N28.9 Active Problem COPD (chronic obstructive pulmonary J44.9 Active disease) Assessment Elevated alkaline phosphatase level R74.8 Active Problem Diabetes E11.9 Active Assessment Elevated liver enzymes R74.8 Active Problem Essential hypertension I10 Active Problem Benign prostate hyperplasia N40.0 Active Problem Obesity, unspecified E66.9 Active Problem Obese E66.9 Active Problem Tinea unguium B35.1 Active Assessment History of endoscopic retrograde Z98.890 Active cholangiopancreatography Assessment Type 2 diabetes mellitus with other E11.69 Active specified complication Problem 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 Assessment 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 Problem Obstructive sleep apnea G47.33 Active Problem Generalized osteoarthrosis, M15.9 Active involving multiple sites Problem 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 Problem Unsteady gait R26.81 Active Problem Hearing loss H91.90 Active Assessment Choledocholithiasis K80.50 Active Assessment Hospital discharge follow-up Z09 Active Problem GERD (gastroesophageal reflux K21.9 Active disease) Problem Benign essential HTN I10 Active Problem Colonic polyp K63.5 Active Problem Type 2 diabetes mellitus with other E11.69 Active specified complication Medications Medication Code Code Instructions Start End Status Dosage System Date Date Cetirizine HCl ND 25136751951 10 MG Orally Apr 18, Active 1 tablet Once a day 2017 Triamcinolone ND 56400295162 0.1 % Active APPLY A Acetonide SMALL AMOUNT TO AFFECTED AREA TWICE A DAY DIRECTED DO NOT APPLY TO FACE Cetirizine HCl ND 34711900844 10 MG Active TOME ALEX TABLETA POR VIA ORAL TODOS [place] NEEDED FOR ALLERGIES Losartan Potassium ND 57013193556 50 MG Active TOME ALEX TABLETA POR VIA ORAL TODOS [place] Metformin HCl ND 11907203903 500 MG Active TAKE 1 TABLET BY MOUTH EVERY MORNING Hydrochlorothiazide ND 60121888848 12.5 MG Orally Apr 18, Active 1 tablet Once a day 2018 in the morning Cozaar ND 29124435037 50 MG Orally Active 1 tablet Once a day Cetirizine HCl ND 27434272726 10 MG Orally Active 1 tablet Once a day Symbicort [facility] 70981091897 160-4.5 Active 2 puffs MCG/ACT Inhalation Twice a day Losartan Potassium ND 16832719275 100 MG Orally Active 1 tablet Once a day Ultram ND 28400662554 50 MG Orally Active 1 tablet every 6 hrs as needed Meclizine HCl ND 95634318913 12.5 MG Orally Active 2 tablets Once a day as needed Lyrica ND 27447005205 100 MG Orally Active 1 capsule three times a day Flonase [facility] 62920114992 50 MCG/ACT Active 2 spray in Nasally Once a each day nostril Metformin HCl ND 60894032675 500 MG Orally Active 1 tablet Twice a day with meals Ventolin HFA ND 37281021636 108 (90 Base) Active 2 puffs as MCG/ACT needed Inhalation every 6 hrs Zyrtec Allergy ND 25062067663 10 MG Orally Active 1 tablet Once a day Lexapro ND 82008928349 10 MG Orally Jun 27, Active 1 tablet Once a day 2018 Aspirin Adult Low [facility] 88913425972 81 MG Orally Active 1 tablet Dose Once a day Results No Known Results Summary Purpose eClinicalWorks Submission
--- OUTSIDE RECORDS SUMMARY | 2018-10-05 06:56 | XMS REPORT ---
[...] Status Dosage System Date Date Ventolin HFA [facility] 79388591342 108 (90 Base) Active 2 puffs as MCG/ACT needed Inhalation every [address] [facility] 08667016388 100 MG Orally Active 1 capsule three times a day Cozaar [facility] 53458027904 50 MG Orally Active 1 tablet Once a day Losartan Potassium [facility] 65352811345 50 MG Active TOME ALEX TABLETA POR VIA ORAL TODOS [place] Hydrochlorothiazide [facility] 16677554973 12.5 MG Orally Apr 18, Active 1 tablet Once a day 2018 in the morning Cetirizine HCl [facility] 03779593364 10 MG Active TOME ALEX TABLETA POR VIA ORAL TODOS [place] NEEDED FOR ALLERGIES Cetirizine HCl ND 15016278990 10 MG Orally Apr 18, Active 1 tablet Once a day [address] [facility] 21323594405 160-4.5 Active 2 puffs MCG/ACT Inhalation Twice a day Flonase [facility] 86782604044 50 MCG/ACT Active 2 spray in Nasally Once a each day nostril Metformin HCl [facility] 00848255451 500 MG Active TAKE 1 TABLET BY MOUTH EVERY MORNING Ultram [facility] 34703125676 50 MG Orally Active 1 tablet every 6 hrs as needed Meclizine HCl [facility] 80120702908 12.5 MG Orally Active 2 tablets Once a day as needed Aspirin Adult Low [facility] 78544044024 81 MG Orally Active 1 tablet Dose Once a day Zyrtec Allergy [facility] 96150645077 10 MG Orally Active 1 tablet Once a day Metformin HCl [facility] 86677156283 500 MG Orally Active 1 tablet Twice a day with meals Losartan Potassium [facility] 98067937103 100 MG Orally Active 1 tablet Once a day Cetirizine HCl [facility] 33140379605 10 MG Orally Active 1 tablet Once a day Results No Known Results Summary Purpose eClinicalWorks Submission
--- OUTSIDE RECORDS SUMMARY | 2018-10-05 06:57 | XMS REPORT ---
:1930 Author Organization eClinicalWorks Care Team Providers Name Role Phone Fabian Qureshi Provider Role Unavailable Allergies, Adverse Reactions, Alerts Substance Reaction Event Type N.K.D.A. 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 Problem Obese E66.9 Active Problem Elevated alkaline phosphatase level R74.8 Active Problem Screening for cardiovascular Z13.6 Active condition Problem Diabetes E11.9 Active Problem COPD (chronic obstructive pulmonary J44.9 Active disease) Problem Renal insufficiency N28.9 Active Problem Benign essential HTN I10 Active Problem Mass of anus K62.89 Active Problem Controlled type 2 diabetes mellitus E11.42 Active with diabetic polyneuropathy, without long-term current use of insulin Problem Chronic kidney disease, stage III N18.3 Active (moderate) Problem Type 2 diabetes mellitus with E11.22 Active diabetic chronic kidney disease Problem Colonic polyp K63.5 Active Problem Obesity, unspecified E66.9 Active Problem Essential hypertension I10 Active Problem Hearing loss H91.90 Active Problem Type 2 diabetes mellitus with other E11.69 Active specified complication Problem Obstructive sleep apnea G47.33 Active Problem Benign prostate hyperplasia N40.0 Active Problem Generalized osteoarthrosis, M15.9 Active involving multiple sites Medications Medication Code Code Instructions Start End Status Dosage System Date Date Cetirizine HCl [facility] 62422605914 10 MG Active TOME ALEX TABLETA POR VIA ORAL TODOS [place] NEEDED FOR ALLERGIES Ultram ND 72586118043 50 MG Orally Active 1 tablet every 6 hrs as needed Lexapro ND 44580511113 10 MG Orally Jun 27, Active 1 tablet Once a day 2018 Losartan Potassium [facility] 32605662522 50 MG Active TOME ALEX TABLETA POR VIA ORAL TODOS [place] Symbicort [facility] 85652425060 160-4.5 Active 2 puffs MCG/ACT Inhalation Twice a day Hydrochlorothiazide [facility] 77120083815 12.5 MG Orally Active 1 tablet Once a day in the morning Ventolin HFA [facility] 56268465368 108 (90 Base) Active 2 puffs as MCG/ACT needed Inhalation every 6 hrs Flonase [facility] 83800949634 50 MCG/ACT Active 2 spray in Nasally Once a each day nostril Zyrtec Allergy [facility] 94743679878 10 MG Orally Active 1 tablet Once a day Aspirin Adult Low [facility] 37265513784 81 MG Orally Active 1 tablet Dose Once a day Metformin HCl [facility] 00943676208 500 MG Orally Active 1 tablet Twice a day with meals Losartan Potassium [facility] 34275971364 100 MG Orally Active 1 tablet Once a day Cozaar [facility] 12329711982 50 MG Orally Active 1 tablet Once a day Cetirizine HCl [facility] 58198558237 10 MG Orally Active 1 tablet Once a day Lyrica [facility] 41127119795 100 MG Orally Active 1 capsule three times a day Triamcinolone [facility] 72395811393 0.1 % Active APPLY A Acetonide SMALL AMOUNT TO AFFECTED AREA TWICE A DAY DIRECTED DO NOT APPLY TO FACE Meclizine HCl [facility] 39303049123 12.5 MG Orally Active 2 tablets Once a day as needed Results No Known Results Summary Purpose eClinicalWorks Submission
--- OUTSIDE RECORDS SUMMARY | 2018-10-05 06:57 | XMS REPORT ---
:1930 Author Organization eClinicalWorks Care Team Providers Name Role Phone Koehler, Na Provider Role Unavailable Allergies, Adverse Reactions, Alerts Substance Reaction Event Type N.K.D.A. Info Not Available Non Drug Allergy Problems Problem Type Condition Code Onset Dates Condition Status Assessment Elevated alkaline phosphatase level R74.8 Active Assessment Unsteady gait R26.81 Active Assessment COPD (chronic obstructive pulmonary J44.9 Active disease) Assessment Generalized osteoarthrosis, M15.9 Active involving multiple sites Assessment Mass of anus K62.89 Active Assessment Chronic kidney disease, stage III N18.3 Active (moderate) Assessment Type 2 diabetes mellitus with E11.22 Active diabetic chronic kidney disease Assessment Controlled type 2 diabetes mellitus E11.42 Active with diabetic polyneuropathy, without long-term current use of insulin Assessment Essential hypertension I10 Active Problem 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 Active [...] Start End Status Dosage System Date Date Zyrtec Allergy [facility] 12201355256 10 MG Orally Active 1 tablet Once a day Cetirizine HCl ND 90333863823 10 MG Orally Active 1 tablet Once a day Losartan Potassium ND 60573637425 100 MG Orally Active 1 tablet Once a day Ultram ND 92342139969 50 MG Orally Active 1 tablet every 6 hrs as needed Ventolin HFA [facility] 23338659077 108 (90 Base) Active 2 puffs as MCG/ACT needed Inhalation every 6 hrs Flonase ND 91741044270 50 MCG/ACT Active 2 spray in Nasally Once a each day nostril Lyrica ND 83742327169 100 MG Orally Active 1 capsule three times a day Aspirin Adult Low [facility] 95488213889 81 MG Orally Active 1 tablet Dose Once a day Lexapro ND 72706125826 10 MG Orally Jun 27, Active 1 tablet Once a day 2018 Metformin HCl [facility] 02700221857 500 MG Orally Active 1 tablet Twice a day with meals Symbicort [facility] 31011896909 160-4.5 Active 2 puffs MCG/ACT Inhalation Twice a day Hydrochlorothiazide ND 69641221033 12.5 MG Orally Active 1 tablet Once a day in the morning Triamcinolone [facility] 67549297183 0.1 % Active APPLY A Acetonide SMALL AMOUNT TO AFFECTED AREA TWICE A DAY DIRECTED DO NOT APPLY TO FACE Cetirizine HCl ND 54253881908 10 MG Orally Apr 18, Active 1 tablet Once a day 2017 Losartan Potassium [facility] 31322795389 50 MG Active TOME ALEX TABLETA POR VIA ORAL TODOS [place] Cozaar [facility] 91023359421 50 MG Orally Active 1 tablet Once a day Metformin HCl [facility] 71993475028 500 MG Active TAKE 1 TABLET BY MOUTH EVERY MORNING Cetirizine HCl [facility] 44156868698 10 MG Active TOME ALEX TABLETA POR VIA ORAL TODOS [place] NEEDED FOR ALLERGIES Meclizine HCl ND 00381861470 12.5 MG Orally Active 2 tablets Once a day as needed Results No Known Results Summary Purpose eClinicalWorks Submission
[2018-10-05] MEDS ORDERED: NA CHLORIDE 0.9% 1,000 ML ONE (07:48)
[2018-10-05] MEDS ORDERED: LIDOCAINE 1% MPF 5 ML VIAL ONE (08:31)
[2018-10-05] MEDS ORDERED: PROPOFOL 200 MG/20 ML VIAL IV ONE (08:31)
--- NOTE | 2018-10-05 09:12 | ENDO RPT ---
[address], [address] COLONOSCOPY PROCEDURE REPORT EXAM DATE: 10/05/2018 PATIENT NAME: Tam Ornelas MR #: [id number] BIRTHDATE: 1930 ATTENDING: Fabian Qureshi DR STATUS: outpatient [employer] COORDINATOR: Jermaine Garcia [facility], Lucila Peguero RN, and Jose Lechuga RN INDICATIONS: The patient is a 88 yr old Male here for a colonoscopy due to personal history of colon polyps PROCEDURE PERFORMED: Colonoscopy with biopsy - cold polypectomy MEDICATIONS: Per Anesthesia. ESTIMATED BLOOD LOSS: None CONSENT: The patient understands the risks and benefits of the procedure and understands that these risks include, but are not limited to: sedation, allergic reaction, infection, perforation and/or bleeding. Alternative means of evaluation and treatment include, among others: physical exam, x-rays, and/or surgical intervention. The patient elects to proceed with this endoscopic procedure. DESCRIPTION OF PROCEDURE: During intra-op preparation period all mechanical medical equipment was checked for proper function. Hand hygiene and appropriate measures for infection prevention was taken. Procedure, possible complications, alternatives including, but not limited to possibility of bleeding, perforation, tear, infection, sepsis, need for surgery, need for blood transfusion, were explained to the patient. After the risks, benefits and alternatives of the procedure were thoroughly explained, Informed consent was verified, confirmed and timeout was successfully executed by the treatment team. The patient was placed in the left lateral position. A digital rectal exam was performed and revealed internal hemorrhoids, A digital rectal exam was performed and revealed external hemorrhoids, and A digital rectal exam was performed and revealed a palpable rectal mass. After appropriate level of anesthesia, the scope was passed. The EC-[id number] ([id number]) endoscope was introduced through the anus and advanced to the cecum, which was identified by both the appendix and ileocecal valve. The quality of the prep was poor. The instrument was then slowly withdrawn as the colon was fully examined. Scope withdrawal time was 15 minutes. COLON FINDINGS: There was moderate diverticulosis noted throughout the entire examined colon with associated angulation. No bleeding was noted from the diverticulosis. Multiple small medium sized smooth sessile polyps with friable surfaces were found throughout the entire examined colon. A polypectomy was performed with cold forceps and using snare cautery. The resection was complete, the polyp tissue was completely retrieved and sent to histology. Retroflexed views revealed no abnormalities. The scope was then completely withdrawn from the patient and the procedure terminated. ADVERSE EVENTS: There were no complications. IMPRESSIONS: 1. There was moderate diverticulosis noted throughout the entire examined colon 2. Multiple small medium sized sessile polyps were found throughout the entire examined colon; polypectomy was performed in a piecemeal fashion with cold forceps and using snare cautery RECOMMENDATIONS: 1. avoid NSAIDS for 2 weeks 2. await biopsy results 3. follow-up: office 2 week(s) 4. Monitor for any evidence of rectal bleeding. 5. yearly hemoquant 6. hemorrhoidal hygiene 7. increase dietary water 8. no seeds in diet 9. Schedule Surgery for anal mass / hemorrhoids RECALL: Return in 1 year(s) for Colonoscopy, pending biopsy results. Poor Prep, >[address] eSigned: Fabian Qureshi DR 10/05/2018 9:11 AM cc: CPT CODES: ICD9 CODES: PATIENT NAME: Tam Ornelas MR#: [id number]
== END 2018-10-05 10:00 | disposition home or self-care (01) ==
LOC: OR 06:51
PROVIDERS: ATTEND Surgery
PROC: 0DBL8ZX Excision of Transverse Colon, Via Natural or Artificial Opening Endoscopic, Diagnostic (ICD-10-PCS; 2018-10-05)
PROC: 0DBB8ZX Excision of Ileum, Via Natural or Artificial Opening Endoscopic, Diagnostic (ICD-10-PCS; 2018-10-05)
PROC: 0DBM8ZX Excision of Descending Colon, Via Natural or Artificial Opening Endoscopic, Diagnostic (ICD-10-PCS; 2018-10-05)
PROC: 0DBH8ZX Excision of Cecum, Via Natural or Artificial Opening Endoscopic, Diagnostic (ICD-10-PCS; 2018-10-05)
PROC: 0DBK8ZX Excision of Ascending Colon, Via Natural or Artificial Opening Endoscopic, Diagnostic (ICD-10-PCS; principal; 2018-10-05 08:30)
DX: Z12.11 Encounter for screening for malignant neoplasm of colon (principal); D12.3 Benign neoplasm of transverse colon; D12.0 Benign neoplasm of cecum; D12.2 Benign neoplasm of ascending colon; D12.4 Benign neoplasm of descending colon; K57.30 Diverticulosis of large intestine without perforation or abscess without bleeding; K64.8 Other hemorrhoids; K64.4 Residual hemorrhoidal skin tags; E11.9 Type 2 diabetes mellitus without complications; I10 Essential (primary) hypertension; N40.0 Benign prostatic hyperplasia without lower urinary tract symptoms; J44.9 Chronic obstructive pulmonary disease, unspecified; K21.9 Gastro-esophageal reflux disease without esophagitis; G47.33 Obstructive sleep apnea (adult) (pediatric); M15.9 Polyosteoarthritis, unspecified; Z79.84 Long term (current) use of oral hypoglycemic drugs; Z79.51 Long term (current) use of inhaled steroids; Z79.899 Other long term (current) drug therapy
CPT/HCPCS: 45385; 82962; 88305; J2704; J7030